=== PATIENT | female | born 1955 | race Caucasian/White ===

== ENCOUNTER 2023-12-30 08:58 | Outpatient (CLI) | payer MEDICARE, SELFPAY ==
[2023-12-30 09:49] LABS: Basophils Absolute Auto 0.1 K/mm3 (0.0-0.1); Basophils Percent Auto 1.1 % (0.2-1.2); Eosinophils Absolute Auto 0.3 K/mm3 (0-0.3); Eosinophils Percent Auto 3.9 % (0-4.4); Hematocrit 45.7 % (37.0-47.0); Hemoglobin 14.4 g/dL (12.0-15.0); Immature Granulocyte Absolute 0.01 K/mm3 (0.00-0.031); Immature Granulocyte Percent A 0.2 % (0-0.5); Lymphocytes Absolute Auto 2.08 K/mm3 (0.9-3.2); Lymphocytes Percent Auto 31.5 % (18.3-44.2); Mean Corpuscular HGB Conc 31.5 g/dl (32-36); Mean Corpuscular Hemoglobin 28.4 pg (26-34); Mean Corpuscular Volume 90.1 fl (80-100); Mean Platelet Volume 9.7 fl (7.4-10.4); Monocytes Absolute Auto 0.7 K/mm3 (0.1-0.6); Monocytes Percent Auto 10.2 % (2.6-8.5); Neutrophils Absolute Auto 3.5 K/mm3 (1.3-6.7); Neutrophils Percent Auto 53.1 % (45.5-73.1); Platelet Count Result 234 k/mm3 (150-375); Red Blood Count 5.07 M/mm3 (4.2-5.4); Red Cell Distribution Width 13.2 % (11.5-14.5); White Blood Count 6.6 K/mm3 (4.5-10.0)
[2023-12-30 09:59] LABS: Alanine Aminotransferase 17 U/L (6-35); Albumin Level 4.5 g/dL (3.5-5.1); Alkaline Phosphatase 54 U/L (38-126); Anion Gap 7 mmol/L (4-12); Aspartate Amino Transferase 24 U/L (14-36); Bilirubin,Total 0.4 mg/dL (0.2-1.3); Blood Urea Nitrogen 11 mg/dL (7-17); Calcium 9.6 mg/dL (8.4-10.2); Carbon Dioxide 24 mmol/L (22-30); Chloride 105 mmol/L (98-107); Cholesterol 156 mg/dL (0-200); Estimated Glomerular Filt Rate 55; Glucose 99 mg/dL (65-110); HDL Direct 84 mg/dL; Potassium 4.4 mmol/L (3.4-5.0); Sodium 136 mmol/L (137-145); Triglycerides 108 mg/dL (<150); Uric Acid 5.2 mg/dL (2.5-7.5)
[2023-12-30 11:39] LABS: Erythrocyte Sedimentation Rate 12 mm/hr (0-20)
[2023-12-30 21:10] LABS: LDL Cholesterol Direct 69 mg/dL
== END 2023-12-30 08:59 | disposition home or self-care (01) ==
PROVIDERS: PCP Family Medicine; Visit Provider Family Medicine
DX: C18.9 Malignant neoplasm of colon, unspecified (principal); I10 Essential (primary) hypertension; E78.2 Mixed hyperlipidemia; I73.9 Peripheral vascular disease, unspecified; M19.90 Unspecified osteoarthritis, unspecified site
CPT/HCPCS: 36415; 80053; 80061; 84443; 84550; 85025; 85652

== ENCOUNTER 2024-02-28 14:31 | Outpatient (CLI) | payer MEDICARE, SELFPAY ==
[2024-02-28 14:44] LABS: Basophils Absolute Auto 0.1 K/mm3 (0.0-0.1); Basophils Percent Auto 0.8 % (0.2-1.2); Eosinophils Absolute Auto 0.3 K/mm3 (0-0.3); Eosinophils Percent Auto 3.7 % (0-4.4); Hematocrit 44.8 % (37.0-47.0); Hemoglobin 14.3 g/dL (12.0-15.0); Immature Granulocyte Absolute 0.02 K/mm3 (0.00-0.031); Immature Granulocyte Percent A 0.2 % (0-0.5); Lymphocytes Absolute Auto 2.42 K/mm3 (0.9-3.2); Lymphocytes Percent Auto 28.3 % (18.3-44.2); Mean Corpuscular HGB Conc 31.9 g/dl (32-36); Mean Corpuscular Hemoglobin 28.8 pg (26-34); Mean Corpuscular Volume 90.3 fl (80-100); Mean Platelet Volume 9.7 fl (7.4-10.4); Monocytes Absolute Auto 0.6 K/mm3 (0.1-0.6); Monocytes Percent Auto 6.8 % (2.6-8.5); Neutrophils Absolute Auto 5.2 K/mm3 (1.3-6.7); Neutrophils Percent Auto 60.2 % (45.5-73.1); Platelet Count Result 231 k/mm3 (150-375); Red Blood Count 4.96 M/mm3 (4.2-5.4); Red Cell Distribution Width 12.7 % (11.5-14.5); White Blood Count 8.6 K/mm3 (4.5-10.0)
[2024-02-28 16:51] LABS: Alanine Aminotransferase 18 U/L (6-35); Albumin Level 4.6 g/dL (3.5-5.1); Alkaline Phosphatase 64 U/L (38-126); Anion Gap 4 mmol/L (4-12); Aspartate Amino Transferase 30 U/L (14-36); Bilirubin,Total 0.6 mg/dL (0.2-1.3); Blood Urea Nitrogen 12 mg/dL (7-17); Carbon Dioxide 29 mmol/L (22-30); Chloride 105 mmol/L (98-107); Estimated Glomerular Filt Rate > 60; Glucose 100 mg/dL (65-110); Potassium 4.2 mmol/L (3.4-5.0); Sodium 138 mmol/L (137-145)
[2024-02-28 17:17] LABS: Carcinoembryonic Antigen 1.2 ng/mL (0.0-3.0)
== END 2024-02-28 14:32 | disposition home or self-care (01) ==
PROVIDERS: PCP Family Medicine; Visit Provider Internal Medicine Hematology & Oncology
DX: C18.6 Malignant neoplasm of descending colon (principal)
CPT/HCPCS: 36415; 80053; 82378; 85025

== ENCOUNTER 2024-03-06 09:01 | Outpatient (CLI) | payer MEDICARE, SELFPAY ==
--- NOTE | ~2024-03-06 | CT_ITS ---
CT of the Abdomen and Pelvis: Indication: Colon cancer Technique: 2.5 mm axial scans were obtained through the abdomen and pelvis following intravenous adm inistration of 100 cc of Omnipaque 350. Dose reduction technique was used on this scan by utilizing a utomated exposure control and iterative reconstruction technique. The dose-length product (DLP) was 3 57.01 mGy-cm. Findings: Scans through the lung bases are unremarkable. 7 mm probable hepatic cyst present. The spleen, pancreas, gallbladder, adrenals and kidneys are withi n normal limits. There are atherosclerotic calcifications of the aorta. No retroperitoneal lymphaden opathy. No bowel obstruction or bowel wall thickening. Evidence of prior partial right colectomy. There is a 1.4 x 1.0 cm peritoneal nodule or lymph node anteriorly in the upper abdomen (axial image 56), adjace nt to the stomach. Images through the pelvis were performed. Urinary bladder unremarkable. No pelvic mass seen. No ascit es. Impression: 1.4 x 1.0 cm peritoneal nodule or lymph node in the upper abdomen adjacent to the stomach. Metastatic disease is a consideration. Comparison with prior exams from other institutions is recommended to as sess for chronicity of this finding. Status post prior partial right colectomy. Reviewed, dictated and finalized at location M. Impression: 1.4 x 1.0 cm peritoneal nodule or lymph node in the upper abdomen adjacent to t he stomach. Metastatic disease is a consideration. Comparison with prior exams from other institutions is recommended to assess for chronicity of this finding . Status post prior partial right colectomy.
== END 2024-03-06 09:02 | disposition home or self-care (01) ==
PROVIDERS: PCP Family Medicine; Visit Provider Internal Medicine Hematology & Oncology
DX: C18.6 Malignant neoplasm of descending colon (principal)
CPT/HCPCS: 74177; Q9967

== ENCOUNTER 2024-03-21 09:09 | Outpatient (CLI) | payer MEDICARE, SELFPAY ==
--- NOTE | ~2024-03-21 | PE_ITS ---
EXAMINATION: PET skull to mid thigh DATE: 03/21/2024 11:59 INDICATION: Colon cancer TECHNIQUE: Blood glucose level was 108 mg/dL. 9.603 mCi of 18-fluorodeoxyglucose (18-FDG) was adminis tered i.v. Low dose computed tomography (CT) images were acquired from the base of the brain to the p roximal thighs for attenuation correction and anatomic localization. Positron emission tomography (PE T) images were acquired in the same distribution beginning 54 minutes after injection. Images includi ng fused PET/CT images were reconstructed in axial, coronal, and sagittal planes. Automated exposure control technique was employed. The dose-length product was 889.22mGy-cm. COMPARISON: None FINDINGS: Head/neck: There is symmetric increased activity in the oral cavity, palatine tonsils, parotid glands, submandi bular glands, laryngeal muscles and ocular muscles without CT correlate, likely physiologic. No patho logically enlarged cervical lymphadenopathy or suspicious foci of increased FDG uptake in the visuali zed head or neck. Chest: Mild emphysema. Mild dependent atelectasis in the bilateral lower lobes. No suspicious pulmonary nodu les, pneumonia, pulmonary edema or pleural effusion. Heart size is normal. Atherosclerotic coronary a rtery calcifications. Thoracic aorta is normal in caliber. No pathologically enlarged or FDG avid tho racic lymphadenopathy. Abdomen/pelvis/proximal thighs: Physiologic renal accumulation and excretion of FDG activity in the kidneys, bladder and along portio ns of ureters. Normal degree and heterogenous pattern of increased uptake throughout the liver withou t radiologic correlate or dominant FDG avid lesion. Small calcified hepatic nodule consistent with ol d granulomatous disease. Subcentimeter cyst in the caudal right hepatic lobe. Gallbladder, spleen, pa ncreas and bilateral adrenal glands are normal. Mild uptake scattered throughout the bowels without r adiologic correlate, also likely physiologic. Status post right hemicolectomy with ileocolic anastomo sis in the left abdomen. Anteverted uterus is unremarkable. No free intraperitoneal gas or fluid. No other abnormal foci of increased FDG uptake or pathologically enlarged lymphadenopathy in the abdome n, pelvis or proximal thighs. Musculoskeletal: Mild uptake at the radial aspect of the bilateral carpi, left . Right which is likely degenerative in etiology. There is mild likely physiologic uptake in the muscles of the bilateral forearms. Mild upt jelena without radiologic correlate overlying the bilateral greater trochanters consistent with trochant laron bursitis. No suspicious lytic, blastic or FDG avid bone lesions to suggest metastatic disease. IMPRESSION: 1. Status post right hemicolectomy for reported colon cancer. No evident metastatic disease. Reviewed, dictated and finalized at location B. IMPRESSION: 1. Status post right hemicolectomy for reported colon cancer. No evident metast atic disease.
[2024-03-21 09:48] LABS: Glucose Point of Care 108 mg/dl (65-105)
== END 2024-03-21 09:10 | disposition home or self-care (01) ==
LOC: ANHIMG 09:11
PROVIDERS: PCP Family Medicine; Visit Provider Internal Medicine Hematology & Oncology
DX: C18.6 Malignant neoplasm of descending colon (principal); Z90.49 Acquired absence of other specified parts of digestive tract
CPT/HCPCS: 78815; A9552

== ENCOUNTER 2024-03-23 09:29 | Outpatient (CLI) | payer MEDICARE, SELFPAY ==
[2024-03-23 11:02] LABS: Influenza A QL RT-PCR Negative (Negative); Influenza B QL RT-PCR Negative (Negative); RSV RNA, RT-PCR Negative (Negative); SARS-CoV-2 RNA PCR Positive (Negative)
== END 2024-03-23 09:30 | disposition home or self-care (01) ==
LOC: ANHLAB 09:30
PROVIDERS: Student in an Organized Health Care Education/Training Program; PCP Family Medicine; Visit Provider Family Medicine
DX: U07.1 COVID-19 (principal); R05.9 Cough, unspecified; R50.9 Fever, unspecified; R09.81 Nasal congestion
CPT/HCPCS: 87637

== ENCOUNTER 2024-07-06 08:35 | Outpatient (CLI) | payer MEDICARE, SELFPAY ==
--- NOTE | ~2024-07-06 | CT_ITS ---
CT of the Abdomen and Pelvis: Indication: Colon cancer Technique: 2.5 mm axial scans were obtained through the abdomen and pelvis following intravenous adm inistration of 100 cc of Omnipaque 350. Dose reduction technique was used on this scan by utilizing a utomated exposure control and iterative reconstruction technique. The dose-length product (DLP) was 4 29.02 mGy-cm. COMPARISON: 03/06/2024 Findings: Scans through the lung bases are unremarkable. The liver, spleen, pancreas, gallbladder, adrenals and kidneys are within normal limits. There are at herosclerotic calcifications of the aorta. No lymphadenopathy. No bowel obstruction or bowel wall thickening. Prior right hemicolectomy. Stable small soft tissue no dule anteriorly, just inferior to the stomach (axial image 58). Images through the pelvis were performed. Urinary bladder unremarkable. No pelvic mass seen. No ascit es. Impression: Stable small soft tissue nodule just inferior to the stomach. Status post right hemicolectomy. Reviewed, dictated and finalized at location . Impression: Stable small soft tissue nodule just inferior to the stomach. Status post right hemicolectomy.
[2024-07-06 09:05] LABS: Estimated Glomerular Filt Rate > 60
== END 2024-07-06 08:36 | disposition home or self-care (01) ==
PROVIDERS: PCP Family Medicine; Visit Provider Internal Medicine Hematology & Oncology
DX: D21.4 Benign neoplasm of connective and other soft tissue of abdomen (principal); Z48.815 Encounter for surgical aftercare following surgery on the digestive system; C18.6 Malignant neoplasm of descending colon
CPT/HCPCS: 74177; Q9967

== ENCOUNTER 2024-07-12 12:24 | Outpatient (CLI) | payer MEDICARE, SELFPAY ==
[2024-07-12 12:40] LABS: Basophils Absolute Auto 0.1 K/mm3 (0.0-0.1); Basophils Percent Auto 0.8 % (0.2-1.2); Eosinophils Absolute Auto 0.3 K/mm3 (0-0.3); Eosinophils Percent Auto 4.6 % (0-4.4); Hematocrit 45.3 % (37.0-47.0); Hemoglobin 14.4 g/dL (12.0-15.0); Immature Granulocyte Absolute 0.02 K/mm3 (0.00-0.031); Immature Granulocyte Percent A 0.3 % (0-0.5); Lymphocytes Absolute Auto 2.38 K/mm3 (0.9-3.2); Lymphocytes Percent Auto 32.9 % (18.3-44.2); Mean Corpuscular HGB Conc 31.8 g/dl (32-36); Mean Corpuscular Hemoglobin 28.8 pg (26-34); Mean Corpuscular Volume 90.6 fl (80-100); Mean Platelet Volume 9.7 fl (7.4-10.4); Monocytes Absolute Auto 0.4 K/mm3 (0.1-0.6); Monocytes Percent Auto 5.9 % (2.6-8.5); Neutrophils Percent Auto 55.5 % (45.5-73.1); Platelet Count Result 244 k/mm3 (150-375); Red Cell Distribution Width 13.1 % (11.5-14.5); White Blood Count 7.2 K/mm3 (4.5-10.0)
[2024-07-12 17:08] LABS: Alanine Aminotransferase 19 U/L (6-35); Albumin Level 4.5 g/dL (3.5-5.1); Alkaline Phosphatase 57 U/L (38-126); Anion Gap 7 mmol/L (4-12); Aspartate Amino Transferase 30 U/L (14-36); Bilirubin,Total 0.5 mg/dL (0.2-1.3); Blood Urea Nitrogen 10 mg/dL (7-17); Calcium 9.5 mg/dL (8.4-10.2); Carbon Dioxide 29 mmol/L (22-30); Chloride 102 mmol/L (98-107); Estimated Glomerular Filt Rate > 60; Glucose 132 mg/dL (65-110); Potassium 4.1 mmol/L (3.4-5.0); Sodium 138 mmol/L (137-145)
[2024-07-12 17:40] LABS: Carcinoembryonic Antigen 1.7 ng/mL (0.0-3.0)
== END 2024-07-12 12:25 | disposition home or self-care (01) ==
LOC: ANHLAB 12:25
PROVIDERS: PCP Family Medicine; Visit Provider Internal Medicine Hematology & Oncology
DX: C18.6 Malignant neoplasm of descending colon (principal)
CPT/HCPCS: 36415; 80053; 82378; 85025

== ENCOUNTER 2024-09-14 08:02 | Outpatient (CLI) | payer MEDICARE, SELFPAY ==
--- NOTE | ~2024-09-14 | US_ITS ---
US renal BI 09/14/2024 08:58 Procedure: Realtime transabdominal ultrasound of the kidneys and bladder. Indication: Abnormal finding on outside CT. Comparison: CT dated 09/14/2024 Findings: Renal echotexture is normal bilaterally without hydronephrosis, contour deforming mass or r enal calculus. The right kidney measures 10.1 cm and left kidney measures 10.4 cm. Bladder within no rmal limits. Impression: 1: Unremarkable renal ultrasound. No stones, masses or hydronephrosis. 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 No stones, masses or hydronephrosis.
== END 2024-09-14 08:03 | disposition home or self-care (01) ==
PROVIDERS: PCP Family Medicine; Visit Provider Student in an Organized Health Care Education/Training Program
DX: R93.429 Abnormal radiologic findings on diagnostic imaging of unspecified kidney (principal)
CPT/HCPCS: 76775

== ENCOUNTER 2025-01-03 07:57 | Outpatient (CLI) | payer MEDICARE, SELFPAY ==
--- NOTE | ~2025-01-03 | CT_ITS ---
CT of the Abdomen and Pelvis: Indication: Colon cancer Technique: 2.5 mm axial scans were obtained through the abdomen and pelvis following intravenous adm inistration of 100 cc of Omnipaque 350. Dose reduction technique was used on this scan by utilizing a utomated exposure control and iterative reconstruction technique. The dose-length product (DLP) was 3 82.64 mGy-cm. COMPARISON: 07/06/2024 Findings: Scans through the lung bases are unremarkable. The liver, spleen, pancreas, gallbladder, adrenals and kidneys are within normal limits. There are ex tensive atherosclerotic calcifications of the aorta and iliac vessels. No lymphadenopathy. No bowel obstruction or bowel wall thickening. Prior partial right colectomy. Probable small soft tis simone nodule or implant just anterior to the stomach, measuring 1.9 cm in diameter. Images through the pelvis were performed. Urinary bladder unremarkable. No pelvic mass evident. No as cites. Impression: Stable small soft tissue nodule or implant just anterior to the stomach, measuring 1.9 cm in diameter . Extensive atherosclerotic disease, as above. Prior partial right colectomy. Reviewed, dictated and finalized at [facility]. Impression: Stable small soft tissue nodule or implant just anterior to the stomach, measur ing 1.9 cm in diameter. Extensive atherosclerotic disease, as above. Prior partial right colectomy.
--- OUTSIDE RECORDS SUMMARY | 2025-01-03 08:06 | XMS_ITS | Patient Health Record ---
Author Organization [facility] Address [address] [address] Care Team Providers Care Communications Department Head Name Role Phone Nimesh Dunham Primary Care Provider Ameirca Barriga Unavailable Reason For Referral No Information Social History Tobacco Use: Social History Observation Description Date Details (start date - stop date) Current Smoker NA - NA ... Question Answer Notes Are you a current smoker How often do you smoke cigarettes? every day Alcohol Screen Question Answer Notes Did you have a drink containing alcohol in the p ast year? 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) Active confirmed Problem Secondary malignant neoplasm of intra-abdominal lymph nodes (35187228) 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 (70829646) 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 Problem 15131016 Left sided sciatica (M54.32) Active confirmed Problem Hyperlipidemia (84008017) Other hyperlipidemia (E78.49) Active confirmed Problem Malignant tumor of transverse colon (168986330) Cancer of transverse colon (C18.4) Active confirmed Plan Of Treatment Pending Test Test Name Order Date X-RAY EXAM KNEE 1 OR 2 VIEWS (47761) 08/2018 X-RAY EXAM KNEE STANDING VIEW (59418) Insurance Providers Payer Name Payer Address Payer Phone Subscriber Number Group Number Insured Name Patient Relationship to Insured Coverage Start Date Coverage End Date MEDICARE [employer] [address] [place] [phone] [id number] Elisha Boyle Self - patient is the insured Medical (General) History Surgical History Surgery Date(Month/Year) HERNIA HAND
--- OUTSIDE RECORDS SUMMARY | 2025-01-03 08:06 | XMS_ITS | Clinical Summary ---
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 Active rosuvastatin (CRESTOR) 20 mg tablet Take 20 mg by mouth daily. Active carvediloL (COREG) 6.25 mg tablet Take 6.25 mg by mouth 2 times daily with meals. Active ezetimibe (ZETIA) 10 mg tablet Take 10 mg by mouth daily. Active aspirin (ECOTRIN EC) 81 mg Tablet, Delayed Release (E.C.) Take 81 mg by mouth daily. Active Active Problems No known active problems Encounters Date Type Department Care Team Description 12/13/2024 External Device Data [facility] ABSTRACTION Provider, Abstract 12/02/2024 External Device Data [facility] ABSTRACTION Provider, Abstract 12/01/2024 External Device Data [facility]STRACTION Provider, Abstract 11/29/2024 External Device Data [facility]STRACTION Provider, Abstract 11/29/2024 External Device Data [facility]STRACTION Provider, Abstract 11/15/2024 External Device Data [facility]STRACTION Provider, Abstract 10/18/2024 External Device Data [facility]STRACTION Provider, Abstract 10/18/2024 External Device Data [facility] ABSTRACTION Provider, Abstract from Last 3 Months Family History Relation Name Status Comments Brother Alive Daughter Alive Father Mother Sister Alive Son Alive Social History Tobacco Use Types Packs/Day Years Used Date Smoking Tobacco: Some Days Cigarettes 0.2 55.3 Started: 1970 Smokeless Tobacco: Never Tobacco Cessation:Ready to Q uit: Not Asked; Counseling Given: Not Answered Alcohol Use Standard Drinks/Week Comments Yes 0 (1 standard drink = 0.6 oz pur e alcohol) rarely Comments Unknown Sex and Gender Information Value Date Recorded Sex Assigned at Not on file Legal Sex Female 11:19 AM CDT Gender Identity Not on file Sexual Orientation Not on file Last Filed Vital Signs Vital Sign Reading Time Taken Comments Blood Pressure 140/78 07/13/2024 12:59 PM CDT Pulse 85 07/13/2024 12:59 PM CDT Temperature 36.3 C (97.3 F) 07/13/2024 12:59 PM CDT Respiratory Rate 16 07/13/2024 12:59 PM CDT Oxygen Saturation 97% 07/13/2024 12:59 PM CDT Inhaled Oxygen Concentration - - Weight 66.2 kg (146 lb) 07/13/2024 12:59 PM CDT Height 160 cm (5' 3 ) 02/28/2024 1:40 PM CDT Body Mass Index 25.86 02/28/2024 1:40 PM CDT Plan of Treatment Upcoming Encounters Date Type Department Care Team (Late st Contact Info) Description 01/10/2025 2:30 PM CDT Office Visit [facility] [place] [address] [place] [address] [facility] [address] [place] [address] Harpreet Granados MD [address] [facility] [address] [place] [address] Health Maintenance Due Date Last Done Comments Pre-Diabetes and Diabetes Screening 1955 DTAP/TDAP/TD VACCINES (1 - Tdap) 1974 PNEUMOCOCCAL VACCINE 50+ YEARS (1 of 2 - PCV) 10/19/18 75 BREAST CANCER SCREENING 1995 ZOSTER VACCINE (1 of 2) 2005 OSTEOPOROSIS SCREENING 2020 INFLUENZA VACCINE (#1) 2024 RSV VACCINE (60+ or ) (1 - 1-dose 75+ series) 2030 Insurance MEDICARE PART A AND B Care Teams 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
--- OUTSIDE RECORDS SUMMARY | 2025-01-03 08:06 | XMS_ITS | Referral Summary ---
Author Organization [facility] [address] Address [address] [place] [address] Care Team Providers Care Drum Stock Clerk Name Role Phone Stephanie Grier MD Primary Care Provider Rusty Terrell MD Unavailable [phone] Devyn Weston MD Unavailable Encounters Date Type Department Care Team Description 11/28/2024 7:52 AM SENIOR HRIS ANALYST - 11/28/2024 11:59 PM SENIOR HRIS ANALYST Hospital Encounter [facility] Diag Imaging [facility] [place] [address] Closed wedge compression fracture of T4 vertebra with routine healing, subsequent encounter; Closed wedge compression fracture of T5 vertebra with routine healing, subsequent encounter Discharge Disposition: Discharge to home or self care 11/28/2024 8:24 AM SENIOR HRIS ANALYST - 11/28/2024 11:59 PM SENIOR HRIS ANALYST Hospital Encounter [facility] Pain Mgmt [facility] [address] [address] Devyn Weston MD Closed wedge compression fracture of T4 vertebra with routine healing, subsequent encounter (Primary Dx); Closed wedge compression fracture of T5 vertebra with routine healing, subsequent encounter; Age-related osteoporosis with current pathological fracture with routine healing, subsequent encounter Discharge Disposition: Discharge to home or self care 10/25/2024 Orders Only [facility] V[facility] at [address] [place] [address] Manolo Neves MD Bilateral carotid artery stenosis (Primary Dx) 10/25/2024 9:45 AM SENIOR HRIS ANALYST Office Visit [facility] V[facility] at [address] [place] [address] Willa Burger NP Essential hypertension (Primary Dx); Hyperlipidemia LDL goal <70; Bilateral carotid artery stenosis 10/16/2024 11:00 AM SENIOR HRIS ANALYST Ancillary Procedure [facility] Surgery at [address] [place] [address] Bilateral carotid artery stenosis from Last 3 Months Allergies No known active allergies Medications losartan (COZAAR) 25 mg tablet Take 1 tablet (25 mg total) by mouth daily 02/14/2024 Active rosuvastatin (CRESTOR) 20 mg tablet Take 1 tablet (20 mg total) by mouth daily 02/14/2024 Active ezetimibe (ZETIA) 10 mg tablet Take 1 tablet (10 mg total) by mouth daily 02/14/2024 Active aspirin 81 mg enteric coated tablet Take 1 tablet (81 mg total) by mouth daily Active carvediloL (COREG) 6.25 mg tabletIndications :Benign hypertensive heart disease without heart failure,Essential hypertension Take 1 tablet (6.25 mg total) by mouth 2 (two) times a day with meals 180 tablet 3 02/24/2024 02/24/20 25 Active HYDROcodone-aceta minophen (NORCO) 5-325 mg per tabletIndications :Pain Take 1 tablet by mouth every 6 (six) hours as needed for pain 15 tablet 08/28/2024 Active ibuprofen (ADVIL,MOTRIN) 400 mg tablet Take 1 tablet (400 mg total) by mouth every 6 (six) hours as needed for pain Active Active Problems Problem Noted Date Diagnosed Date Essential hypertension 02/24/2024 Assessment & Plan (04/19/2024 11:27 AM CDT): Stable continue Coreg 6.25 mg Hyperlipidemia LDL goal <70 02/24/2024 Assessment & Plan (04/19/2024 11:27 AM CDT): Stable continue Crestor 20 mg PSVT (paroxysmal supraventricular tachycardia) 0 02/24/2024 History of CVA (cerebrovascular accident) 2023 Bilateral carotid artery stenosis 02/24/2024 Assessment & Plan (10/26/2024 10:54 AM SENIOR HRIS ANALYST): Asymptomatic moderate right internal carotid artery stenosis. Patent left internal carotid artery. Unfortunately continues to smoke. She had previously bilateral carotid endarterectomy in [place] 2-1/2 years ago. Recommend risk factor modifications, aspirin, Zetia and follow up in 6 months for routine surveillance with carotid duplex. Assessment & Plan (04/19/2024 11:27 AM CDT): Bilateral high-grade ICA stenosis status post staged carotid endarterectomy done in [place] back in 2021, has had elevated velocities on repeat duplex of the right ICA, I suspect a mixture of hyperplasia as well as possible continued progression of her disease as she continues to smoke. At this point can safely undergo continued surveillance with repeat carotid duplex in 6 months. Continue ASA statin therapy good blood pressure control. I strongly encouraged her to quit smoking History of bilateral carotid endarterectomy 01/27 Other specified symptoms and signs involving the circulatory and respiratory systems 02/24/2024 Benign hypertensive heart disease without heart failure 02/24/2024 Social History Tobacco Use Types Packs/Day Years Used Date Smoking Tobacco: Every Day Cigarettes Passive Smoke Exposure: Past Tobacco Cessation:Ready to Q uit: Not Asked; Counseling Given: Not Answered AUDIT-C Answer Date Recorded Frequency of Alcohol Consumption Not on file 09/28/2024 Q2: How many drinks containi ng alcohol do you have on a typical day when you are drinking? Patient does not drink Frequency of Binge Drinking Not on file 10/2024 Personal Safety Answer Date Recorded Have you ever been in or are you currently in a harmful physical or emotional relationship or is someone making you feel afraid or unsafe? Denies 08/28/2024 Comments No Sex and Gender Information Value Date Recorded Sex Assigned at Not on file Legal Sex Female 9:24 AM CDT Gender Identity Not on file Sexual Orientation Not on file Last Filed Vital Signs Vital Sign Reading Time Taken Comments Blood Pressure 114/68 11/28/2024 8:46 AM SENIOR HRIS ANALYST Pulse 85 11/28/2024 8:46 AM SENIOR HRIS ANALYST Temperature 36.8 C (98.2 F) 11/28/2024 8:46 AM SENIOR HRIS ANALYST Respiratory Rate 18 11/28/2024 8:46 AM SENIOR HRIS ANALYST Oxygen Saturation 96% 11/28/2024 8:46 AM SENIOR HRIS ANALYST Inhaled Oxygen Concentration - - Weight 70.4 kg (155 lb 1.6 oz) 11/28/2024 8:46 A M SENIOR HRIS ANALYST Height 160 cm (5' 3 ) 11/28/2024 8:46 AM SENIOR HRIS ANALYST Body Mass Index 27.47 11/28/2024 8:46 AM SENIOR HRIS ANALYST Plan of Treatment Not on file Procedures Procedure Name Priority Date/Time Associated Diagnosis Comments XR SPINE THORACIC 3 VIEWS Schedule Routine, Read Routine (OP Routine) 11/28/2024 8:06 AM SENIOR HRIS ANALYST Closed wedge compression fracture of T4 vertebra with routine healing, subsequent encounter Closed wedge compression fracture of T5 vertebra with routine healing, subsequent encounter US CAROTIDS DUPLEX BILATERAL Schedule Routine, Read Routine (OP Routine) 10/16/2024 11:33 AM SENIOR HRIS ANALYST Bilateral carotid artery stenosis from Last 3 Months Results * X-ray thoracic spine 3 views (11/28/2024 8:06 AM SENIOR HRIS ANALYST) Anatomical Region Laterality Modality Spine N/A Computed Radiogr aphy 11/30/2024 2:02 PM SENIOR HRIS ANALYST Narrative 11/30/2024 2:05 PM SENIOR HRIS ANALYST EXAM DESCRIPTION: XR SPINE THORACIC 3 VIEWS REASON FOR STUDY: Other (type), t 4 and t5 compression fracture, osteoporosis Fell/fx T4-T5 08/28/24 TECHNIQUE: Frontal, lateral and swimmer's radiographic view(s) of the thorax spine. COMPARISON: Thoracic spine radiographs dated 09/28/2024, 08/30/2024. Thoracic spine CT dated 08/28/2024. Thoracic spine MRI dated 08/30/2024. FINDINGS: The mid to upper thoracic levels are obscured by overlapping shoulders on the lateral view. The osseous structures are diffusely demineralized and limits evaluation for subtle nondisplaced fractures. There is mild dextroconvex curvature. The T5 vertebral body compression fracture is again seen. The known additional fractures including at T3 and T4 are better seen on the previous MRI. Remainder of the thoracic vertebral body heights are grossly maintained. Multilevel endplate degenerative changes and marginal spur formation. IMPRESSION: 1. The T5 vertebral body compression fracture as seen on the previous thoracic spine radiographs dated 09/28/2024. 2. The additional known fractures are better seen on the previous thoracic spine MRI dated 08/30/2024. 3. The degenerative changes are similar. THIS IS AN ELECTRONICALLY VERIFIED FINAL REPORT 11/30/2024 2:05 PM - Electronically signed by Kayode Dodge D.O. AP T: Report ID: [id number] Reading Location: [place] [address] Procedure Note Kayode Dodge, DO - 11/30/2024 EXAM DESCRIPTION: XR SPINE THORACIC 3 VIEWS REASON FOR STUDY: Other (type), t 4 and t5 compression fracture,osteoporosis Fell/fx T4-T5 08/28/24 TECHNIQUE: Frontal, lateral and swimmer's radiographic view(s) of thethorax spine. COMPARISON: Thoracic spine radiographs dated 09/28/2024, 08/30/2024.Thoracic spine CT dated 08/28/2024. Thoracic spine MRI dated 08/30/2024. FINDINGS: The mid to upper thoracic levels are obscured by overlapping shoulders on the lateral view. The osseous structures are diffusely demineralized and limits evaluation for subtle nondisplaced fractures.There is mild dextroconvex curvature. The T5 vertebral body compressionfracture is again seen. The known additional fractures including at T3 and T4 arebetter seen on the previous MRI. Remainder of the thoracic vertebral bodyheights are grossly maintained. Multilevel endplate degenerative changes andmarginal spur formation. IMPRESSION: 1. The T5 vertebral body compression fracture as seen on the previous thoracic spine radiographs dated 09/28/2024. 2. The additional known fractures are better seen on the previousthoracic spine MRI dated 08/30/2024. 3. The degenerative changes are similar. THIS IS AN ELECTRONICALLY VERIFIED FINAL REPORT 11/30/2024 2:05 PM - Electronically signed by Kayode Dodge D.O. AP T: Report ID: [id number] Reading Location: [id number] Devyn Weston MD IMG XR PROCEDURES Final Result * US Carotids Duplex Bilateral (10/16/2024 11:33 AM SENIOR HRIS ANALYST) LV EF % CONS SCIMAGE Anatomical Region Laterality Modality Vascular Bilateral Ultrasound 10/16/2024 11:0 4 AM SENIOR HRIS ANALYST Narrative 10/18/2024 8:36 AM SENIOR HRIS ANALYST Vascular & Vein Surgery [address] [place] [address] Carotid Duplex Ultrasound Report Patient Name: DEE BOYLE E : 1955 (68y 11m) Study Date: 10/16/2024 11:04:42 AM Gender: F Compliance Analyst: Location: [facility] Ref Provider: MANOLO NEVES Quality: Adequate Order Provider: MANOLO NEVES PROCEDURES: Carotid Report: Carotid duplex examination of the extracranial arteries was performed using 2D, color and spectral Doppler. INDICATIONS: S/P bilateral CEA 2021 (outside facility). HISTORY: Hypertension. Hyperlipidemia. Stroke. Colon CA. Current smoker. COMPARISONS: No change compared to prior study. The previous exam was completed on 03/13/24. MEASUREMENTS: Right Value Left Value RT Prox CCA PSV 130 cm/sec LT Prox CCA PSV 100 cm/sec RT Prox CCA EDV 17 cm/sec LT Prox CCA EDV 21 cm/sec RT Distal CCA PSV 79 cm/sec LT Distal CCA PSV 109 cm/sec RT Distal CCA EDV 22 cm/sec LT Distal CCA EDV 24 cm/sec Rt Bulb PSV 212 cm/sec LT Prox ICA PSV 93 cm/sec Rt Bulb EDV 51 cm/sec LT Prox ICA EDV 16 cm/sec RT Prox ICA PSV 194 cm/sec LT Mid ICA PSV 94 cm/sec RT Prox ICA EDV 39 cm/sec LT Mid ICA EDV 28 cm/sec RT Mid ICA PSV 105 cm/sec LT Distal ICA PSV 85 cm/sec RT Mid ICA EDV 25 cm/sec LT Distal ICA EDV 30 cm/sec RT Distal ICA PSV 66 cm/sec LT ECA Prx PSV 122 cm/sec RT Distal ICA EDV 25 cm/sec LT ICA/CCA 0.85 ratio RT ECA Prx PSV 185 cm/sec Lt Vert Dst PSV 64 cm/sec RT ICA/CCA 2.46 ratio Rt Vert Dst PSV 58 cm/sec - FINDINGS: Rt Common Carotid Artery: The plaque in the right CCA appears to be heterogeneous. Rt Internal Carotid Artery: The plaque in the right internal carotid artery appears to be heterogeneous and smooth. Significant atherosclerotic changes of the right internal carotid artery with elevated peak systolic velocity and end diastolic velocity, as above. 50-69% stenosis. Widely patent internal carotid artery with elevated PSV, plaque with narrowing noted at proximal endarterectomy patch with elevated PSV 212/51 cm/s. Rt External Carotid Artery: Patent right external carotid artery with evidence of atherosclerotic disease present. Rt Vertebral Artery: The right vertebral artery is patent with antegrade flow. Lt Common Carotid Artery: The plaque in the left CCA appears to be heterogeneous. Lt Internal Carotid Artery: The plaque in the left internal carotid artery appears to be heterogeneous and smooth. Atherosclerotic changes of the left internal carotid artery without hemodynamically significant Doppler findings. <50% stenosis. Lt External Carotid Artery: Patent left external carotid artery with evidence of atherosclerotic disease present. Lt Vertebral Artery: The left vertebral artery is patent with antegrade flow. Comments: Brachial artery systolic blood pressure is 153 on the right, 152 on the left. CONCLUSIONS: 1. The right internal carotid artery disease is consistent with a 50-69% stenosis. 2. The left internal carotid artery disease is consistent with a less than 50% stenosis. ATTESTATION: I have reviewed and interpreted the pertinent images and measurements of this study. I attest to the conclusions in the final report that is provided above. Electronically Signed By: Manolo Neves MD [facility] 10/18/2024 8:35:27 AM SENIOR HRIS ANALYST Procedure Note Manolo Neves MD - 10/18/2024 Vascular & Vein Surgery [address] [place] [address] Carotid Duplex Ultrasound Report Patient Name: DEE BOYLE E : 1955 (68y 11m) Study Date: 10/16/2024 11:04:42 AM Gender: F Compliance Analyst: Location: [facility] Provider: MANOLO NEVES Quality: Adequate Order Provider: MANOLO NEVES PROCEDURES: Carotid Report: Carotid duplex examination of the extracranial arterieswas performed using 2D, color and spectral Doppler. INDICATIONS: S/P bilateral CEA 2021 (outside facility). HISTORY: Hypertension. Hyperlipidemia. Stroke. Colon CA. Current smoker. COMPARISONS: No change compared to prior study. The previous exam was completed on03/13/24. MEASUREMENTS: Right Value Left Value RT Prox CCA PSV 130 cm/sec LT Prox CCA PSV 100 cm/sec RT Prox CCA EDV 17 cm/sec LT Prox CCA EDV 21 cm/sec RT Distal CCA PSV 79 cm/sec LT Distal CCA PSV 109 cm/sec RT Distal CCA EDV 22 cm/sec LT Distal CCA EDV 24 cm/sec Rt Bulb PSV 212 cm/sec LT Prox ICA PSV 93 cm/sec Rt Bulb EDV 51 cm/sec LT Prox ICA EDV 16 cm/sec RT Prox ICA PSV 194 cm/sec LT Mid ICA PSV 94 cm/sec RT Prox ICA EDV 39 cm/sec LT Mid ICA EDV 28 cm/sec RT Mid ICA PSV 105 cm/sec LT Distal ICA PSV 85 cm/sec RT Mid ICA EDV 25 cm/sec LT Distal ICA EDV 30 cm/sec RT Distal ICA PSV 66 cm/sec LT ECA Prx PSV 122 cm/sec RT Distal ICA EDV 25 cm/sec LT ICA/CCA 0.85 ratio RT ECA Prx PSV 185 cm/sec Lt Vert Dst PSV 64 cm/sec RT ICA/CCA 2.46ratio Rt Vert Dst PSV 58cm/sec - FINDINGS: Rt Common Carotid Artery: The plaque in the right CCA appears to beheterogeneous. Rt Internal Carotid Artery: The plaque in the right internal carotidartery appears to be heterogeneous and smooth. Significant atherosclerotic changes of the rightinternal carotid artery with elevated peak systolic velocity and end diastolicvelocity, as above. 50-69% stenosis. Widely patent internal carotid artery with elevated PSV,plaque with narrowing noted at proximal endarterectomy patch with elevated PSV 212/51cm/s. Rt External Carotid Artery: Patent right external carotid artery withevidence of atherosclerotic disease present. Rt Vertebral Artery: The right vertebral artery is patent with antegradeflow. Lt Common Carotid Artery: The plaque in the left CCA appears to beheterogeneous. Lt Internal Carotid Artery: The plaque in the left internal carotid arteryappears to be heterogeneous and smooth. Atherosclerotic changes of the left internalcarotid artery without hemodynamically significant Doppler findings. <50% stenosis. Lt External Carotid Artery: Patent left external carotid artery withevidence of atherosclerotic disease present. Lt Vertebral Artery: The left vertebral artery is patent with antegradeflow. Comments: Brachial artery systolic blood pressure is 153 on the right, 152on the left. CONCLUSIONS: 1. The right internal carotid artery disease is consistent with a 50- 69%stenosis. 2. The left internal carotid artery disease is consistent with a less than50% stenosis. ATTESTATION: I have reviewed and interpreted the pertinent images and measurements ofthis study. I attest to the conclusions in the final report that is provided above. Electronically Signed By: Manolo Neves MD B 10/18/2024 8:35:27 AM SENIOR HRIS ANALYST Manolo Neves MD [facility] PROCEDURES Final Result from Last 3 Months Insurance MEDICARE Care Teams Drum Stock Clerk Relationship Specialty Start Date End Date Stephanie Grier MD [address] [facility] [address] [facility] [address] [place] [id number] PCP - General Family Medicine 12/07/23 Rusty Terrell MD [facility] [address] [facility], [address] [address] Consulting Physician Neurosurgery 09/06/24 Devyn Weston MD [address] [facility] [address] [facility], [address] [address] Consulting Physician Pain Management 11/28/24
--- OUTSIDE RECORDS SUMMARY | 2025-01-03 08:06 | XMS_ITS | Clinical Summary ---
Author Organization [facility] [address] Address [address] [place] [address] Care Team Providers Care Supervisor Sawmill Name Role Phone Stephanie Grier MD Primary Care Provider Rusty Terrell MD Unavailable [phone] Devyn Weston MD Unavailable Allergies No known active allergies Medications losartan [...] 02/24/2024 Assessment & Plan (10/26/2024 10:54 AM MATERIALS PLANNING ANALYST): Asymptomatic moderate right internal carotid artery stenosis. Patent left internal carotid artery. Unfortunately continues to smoke. She had previously bilateral carotid endarterectomy in [place] 2-1/2 years ago. Recommend risk factor modifications, aspirin, Zetia and follow up in 6 months for routine surveillance with carotid duplex. Assessment & Plan (04/19/2024 11:27 AM CDT): Bilateral high-grade ICA stenosis status post staged carotid endarterectomy done in [place] back in 2021, has had elevated velocities [...] hypertensive heart disease without heart failure 02/24/2024 Encounters Date Type Department Care Team Description 11/28/2024 8:24 AM MATERIALS PLANNING ANALYST - 11/28/2024 11:59 PM MATERIALS PLANNING ANALYST Hospital Encounter [facility] Neuroscience Ctr Pain Mgmt [address] [address] Devyn Weston MD Closed wedge compression fracture of T4 vertebra with routine healing, subsequent encounter (Primary Dx); Closed wedge compression fracture of T5 vertebra with routine healing, subsequent encounter; Age-related osteoporosis with current pathological fracture with routine healing, subsequent encounter Discharge Disposition: Discharge to home or self care 11/28/2024 7:52 AM MATERIALS PLANNING ANALYST - 11/28/2024 11:59 PM MATERIALS PLANNING ANALYST Hospital Encounter [facility] Diag Imaging [address] [place] [address] Closed wedge compression fracture of T4 vertebra with routine healing, subsequent encounter; Closed wedge compression fracture of T5 vertebra with routine healing, subsequent encounter Discharge Disposition: Discharge to home or self care 10/25/2024 9:45 AM MATERIALS PLANNING ANALYST Office Visit [facility] Medical Group Vascular at [address] [place] [address] Willa Burger NP Essential hypertension (Primary Dx); Hyperlipidemia LDL goal <70; Bilateral carotid artery stenosis 10/25/2024 Orders Only [facility] Group Vascular at [address] [place] [address] Manolo Neves MD Bilateral carotid artery stenosis (Primary Dx) 10/16/2024 11:00 AM MATERIALS PLANNING ANALYST Ancillary Procedure [facility] Vascular and Vein Surgery at [address] [place] [address] Bilateral carotid artery stenosis from Last 3 Months Surgical History Surgery Date Site/Laterality Comments HERNIA REPAIR APPENDECTOMY CAROTID ENDARTERECTOMY Bilateral Medical History Medical History Date Comments Hypertension Hyperlipidemia Heart murmur Arrhythmia History of colon cancer Stroke (HCC) Family History Medical History Relation Name Comments No Known Problems Brother 1 Heart disease Brother 2 Cancer Father Heart attack Mother Stroke Mother Heart disease Sister Relation Name Status Comments Brother 1 Alive Brother 2 Alive Father Mother Alive Sister Alive Social History Tobacco Use Types Packs/Day [...] on file Sexual Orientation Not on file Obstetrics History Last Filed Vital Signs Vital Sign Reading Time Taken Comments Blood Pressure 114/68 11/28/2024 8:46 AM MATERIALS PLANNING ANALYST Pulse 85 11/28/2024 8:46 AM MATERIALS PLANNING ANALYST Temperature 36.8 C (98.2 F) 11/28/2024 8:46 AM MATERIALS PLANNING ANALYST Respiratory Rate 18 11/28/2024 8:46 AM MATERIALS PLANNING ANALYST Oxygen Saturation 96% 11/28/2024 8:46 AM MATERIALS PLANNING ANALYST Inhaled Oxygen Concentration - - Weight 70.4 kg (155 lb 1.6 oz) 11/28/2024 8:46 A M MATERIALS PLANNING ANALYST Height 160 cm (5' 3 ) 11/28/2024 8:46 AM MATERIALS PLANNING ANALYST Body Mass Index 27.47 11/28/2024 8:46 AM MATERIALS PLANNING ANALYST Plan of Treatment Health Maintenance Due Date Last Done Comments Breast Cancer Screening-Mammogram 1955 Colon Cancer Screening-Colonoscopy 1955 Depression Screening 1955 Fall Risk Assessment 1955 Hepatitis C Screening 1955 Osteoporosis Screening-Bone Density Scan 1955 DTaP/Tdap/Td Vaccine (1 - Tdap) 1966 Hepatitis B Screening 1973 Pneumococcal vaccine 65+ (1 of 2 - PCV) 1974 Zoster Vaccine (1 of 2) 2005 Well Visit 65+ 2020 Influenza Vaccine (#1) 2024 Procedures Procedure Name Priority Date/Time Associated Diagnosis Comments XR SPINE THORACIC 3 VIEWS Schedule Routine, Read Routine (OP Routine) 11/28/2024 8:06 AM MATERIALS PLANNING ANALYST Closed wedge compression fracture of T4 vertebra with routine healing, subsequent encounter Closed wedge compression fracture of T5 vertebra with routine healing, subsequent encounter US CAROTIDS DUPLEX BILATERAL Schedule Routine, Read Routine (OP Routine) 10/16/2024 11:33 AM MATERIALS PLANNING ANALYST Bilateral carotid artery stenosis from Last 3 Months Results * X-ray thoracic spine 3 views (11/28/2024 8:06 AM MATERIALS PLANNING ANALYST) Anatomical Region Laterality Modality Spine N/A Computed Radiogr aphy 11/30/2024 2:02 PM MATERIALS PLANNING ANALYST Narrative 11/30/2024 2:05 PM MATERIALS PLANNING ANALYST EXAM DESCRIPTION: XR SPINE THORACIC 3 [...] Kayode Dodge D.O. AP T: Report ID: [id number] Reading Location: [id number] Procedure Note Kayode Dodge, DO - 11/30/2024 [...] Kayode Dodge D.O. AP T: Report ID: [id number] Reading Location: [id number] us Devyn Weston MD IMG XR PROCEDURES Final Result * US Carotids Duplex Bilateral (10/16/2024 11:33 AM MATERIALS PLANNING ANALYST) LV EF % CONS SCIMAGE Anatomical Region Laterality Modality Vascular Bilateral Ultrasound 10/16/2024 11:0 4 AM MATERIALS PLANNING ANALYST Narrative 10/18/2024 8:36 AM MATERIALS PLANNING ANALYST Vascular & Vein Surgery [address] [facility] [place] [address] Carotid Duplex Ultrasound Report Patient Name: DEE BOYLE E : 1955 (68y 11m) Study Date: 10/16/2024 11:04:42 AM Gender: F Certified Scrum Master: SUSHIL Location: [facility] Ref Provider: MANOLO NEVES Quality: Adequate Order [...] above. Electronically Signed By: Manolo Neves MD [place] 10/18/2024 8:35:27 AM MATERIALS PLANNING ANALYST Procedure Note Manolo Neves MD - 10/18/2024 Vascular & Vein Surgery [address] [facility] [place] [address] Carotid Duplex Ultrasound Report Patient Name: DEE BOYLE Jose : 1955 (68y 11m) Study Date: 10/16/2024 11:04:42 AM Gender: F Certified Scrum Master: Location: [facility] Ref Provider: MANOLO NEVES Quality: Adequate Order [...] above. Electronically Signed By: Manolo Neves MD [facility] 10/18/2024 8:35:27 AM MATERIALS PLANNING ANALYST Manolo Neves MD [facility] PROCEDURES Final Result from Last 3 Months Insurance MEDICARE Care Teams Supervisor Sawmill Relationship Specialty Start Date End Date Stephanie Grier MD [address] [place], [place] [id number] PCP - General Family Medicine 12/07/23 Rusty Terrell MD [address] [facility] [address] [facility], [facility] [address] [place] [address] Consulting Physician Neurosurgery 09/06/24 Devyn Weston MD [address] [facility] [facility], [facility] [address] [place] [address] Consulting Physician Pain Management 11/28/24
--- OUTSIDE RECORDS SUMMARY | 2025-01-03 08:06 | XMS_ITS | Encounter Summary ---
Author Organization [facility] Healthcare Address [address] [place] [address] Care Team Providers Care Mobile Home Park Manager Name Role Phone Stephanie Grier MD Primary Care Provider Rusty Terrell MD Unavailable [phone] Devyn Weston MD Unavailable Encounter Details Date Type Department Care Team (Late st Contact Info) Description 09/01/2024 Telephone [facility] Orthopedic and Neuroscience Ctr Pain Mgmt [facility] [address] [place] [address] Bernard Dowell RN Social History Tobacco Use Types Packs/Day Years Used Date Smoking Tobacco: Every Day Cigarettes Passive Smoke Exposure: Past Personal Safety Answer Date Recorded Have you ever been in or are you currently in a harmful physical or emotional relationship or is someone making you feel afraid or unsafe? Denies 08/28/2024 Comments Unknown Sex and Gender Information Value Date Recorded Sex Assigned at Not on file Legal Sex Female 9:24 AM CDT Gender Identity Not on file Sexual Orientation Not on file documented as of this encounter Plan of Treatment Not on file documented as of this encounter Visit Diagnoses Not on filedocumented in this encounter Care Teams Mobile Home Park Manager Relationship Specialty Start Date End Date Stephanie Grier MD [address] [facility] [address] [place] [address] PCP - General Family Medicine 12/07/23 Rusty Terrell MD [address] [facility] [address] [facility], [address] [address] Consulting Physician Neurosurgery 09/06/24 Devyn Weston MD [address] [facility], [address] [address] Consulting Physician Pain Management 11/28/24 documented as of this encounter
[2025-01-03 08:44] LABS: Estimated Glomerular Filt Rate 55
== END 2025-01-03 07:58 | disposition home or self-care (01) ==
PROVIDERS: PCP Family Medicine; Visit Provider Internal Medicine Hematology & Oncology
DX: R93.5 Abnormal findings on diagnostic imaging of other abdominal regions, including retroperitoneum (principal); C18.6 Malignant neoplasm of descending colon; Z90.49 Acquired absence of other specified parts of digestive tract
CPT/HCPCS: 74177; Q9967

== ENCOUNTER 2025-01-03 08:56 | Outpatient (CLI) | payer MEDICARE, SELFPAY ==
[2025-01-03 09:09] LABS: Basophils Percent Auto 0.7 % (0.2-1.2); Eosinophils Absolute Auto 0.3 K/mm3 (0-0.3); Eosinophils Percent Auto 4.3 % (0-4.4); Hematocrit 42.2 % (37.0-47.0); Hemoglobin 13.5 g/dL (12.0-15.0); Immature Granulocyte Absolute 0.01 K/mm3 (0.00-0.031); Immature Granulocyte Percent A 0.2 % (0-0.5); Lymphocytes Absolute Auto 2.03 K/mm3 (0.9-3.2); Lymphocytes Percent Auto 34.9 % (18.3-44.2); Mean Corpuscular Hemoglobin 28.8 pg (26-34); Mean Corpuscular Volume 90.2 fl (80-100); Mean Platelet Volume 9.3 fl (7.4-10.4); Monocytes Absolute Auto 0.5 K/mm3 (0.1-0.6); Monocytes Percent Auto 8.9 % (2.6-8.5); Platelet Count Result 220 k/mm3 (150-375); Red Blood Count 4.68 M/mm3 (4.2-5.4); Red Cell Distribution Width 12.6 % (11.5-14.5); White Blood Count 5.8 K/mm3 (4.5-10.0)
--- OUTSIDE RECORDS SUMMARY | 2025-01-03 09:40 | XMS_ITS | Clinical Summary ---
Author Organization [facility] [address] Address [address] [place] [address] Care Team Providers Care Application Development Intern Name Role Phone Stephanie Grier MD Primary Care Provider Rusty Terrell MD Unavailable [phone] Devyn Weston MD Unavailable Allergies No known [...] 02/24/2024 Assessment & Plan (10/26/2024 10:54 AM BREAKER OPERATOR): Asymptomatic moderate right internal carotid artery stenosis. Patent left internal carotid artery. Unfortunately continues to smoke. She had previously bilateral carotid endarterectomy in [place] 2-1/2 years ago. Recommend risk factor modifications, aspirin, Zetia and follow up in 6 months for routine surveillance with carotid duplex. Assessment & Plan (04/19/2024 11:27 AM CDT): Bilateral high-grade ICA stenosis status post staged carotid endarterectomy done in [place] back in 2021, has had elevated velocities [...] Department Care Team Description 11/28/2024 8:24 AM BREAKER OPERATOR - 11/28/2024 11:59 PM BREAKER OPERATOR Hospital Encounter [facility] Orthopedic and Neuroscience Ctr Pain Mgmt [address] [address] Devyn Weston MD Closed wedge compression fracture of T4 vertebra with routine healing, subsequent encounter (Primary Dx); Closed wedge compression fracture of T5 vertebra with routine healing, subsequent encounter; Age-related osteoporosis with current pathological fracture with routine healing, subsequent encounter Discharge Disposition: Discharge to home or self care 11/28/2024 7:52 AM BREAKER OPERATOR - 11/28/2024 11:59 PM BREAKER OPERATOR Hospital Encounter [facility] Neuro Center Diag Imaging [address] [place] [address] Closed wedge compression fracture of T4 vertebra with routine healing, subsequent encounter; Closed wedge compression fracture of T5 vertebra with routine healing, subsequent encounter Discharge Disposition: Discharge to home or self care 10/25/2024 9:45 AM BREAKER OPERATOR Office Visit [facility] Medical Group Vascular at [address] [place] [address] Willa Burger NP Essential hypertension (Primary Dx); Hyperlipidemia LDL goal <70; Bilateral carotid artery stenosis 10/25/2024 Orders Only [facility] Group Vascular at [address] [place] [address] Manolo Neves MD Bilateral carotid artery stenosis (Primary Dx) 10/16/2024 11:00 AM BREAKER OPERATOR Ancillary Procedure [facility] Vascular and Vein Surgery at [address] [place] [address] Bilateral carotid artery stenosis from Last 3 [...] Comments Blood Pressure 114/68 11/28/2024 8:46 AM BREAKER OPERATOR Pulse 85 11/28/2024 8:46 AM BREAKER OPERATOR Temperature 36.8 C (98.2 F) 11/28/2024 8:46 AM BREAKER OPERATOR Respiratory Rate 18 11/28/2024 8:46 AM BREAKER OPERATOR Oxygen Saturation 96% 11/28/2024 8:46 AM BREAKER OPERATOR Inhaled Oxygen Concentration - - Weight 70.4 kg (155 lb 1.6 oz) 11/28/2024 8:46 A M BREAKER OPERATOR Height 160 cm (5' 3 ) 11/28/2024 8:46 AM BREAKER OPERATOR Body Mass Index 27.47 11/28/2024 8:46 AM BREAKER OPERATOR Plan of Treatment Health Maintenance Due Date [...] Read Routine (OP Routine) 11/28/2024 8:06 AM BREAKER OPERATOR Closed wedge compression fracture of T4 vertebra with routine healing, subsequent encounter Closed wedge compression fracture of T5 vertebra with routine healing, subsequent encounter US CAROTIDS DUPLEX BILATERAL Schedule Routine, Read Routine (OP Routine) 10/16/2024 11:33 AM BREAKER OPERATOR Bilateral carotid artery stenosis from Last 3 Months Results * X-ray thoracic spine 3 views (11/28/2024 8:06 AM BREAKER OPERATOR) Anatomical Region Laterality Modality Spine N/A Computed Radiogr aphy 11/30/2024 2:02 PM BREAKER OPERATOR Narrative 11/30/2024 2:05 PM BREAKER OPERATOR EXAM DESCRIPTION: XR SPINE THORACIC 3 VIEWS [...] Kayode Dodge D.O. AP T: Report ID: [id number] Reading Location: [id number] Procedure Note Kayode Dodge, DO - 11/30/2024 [...] Kayode Dodge D.O. AP T: Report ID: [id number] Reading Location: [id number] Devyn Weston MD IMG XR PROCEDURES Final Result * US Carotids Duplex Bilateral (10/16/2024 11:33 AM BREAKER OPERATOR) LV EF % CONS SCIMAGE Anatomical Region Laterality Modality Vascular Bilateral Ultrasound 10/16/2024 11:0 4 AM BREAKER OPERATOR Narrative 10/18/2024 8:36 AM BREAKER OPERATOR Vascular & Vein Surgery [address] [facility] 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 [address] Carotid Duplex Ultrasound Report Patient Name: DEE BOYLE Jose : 1955 (68y 11m) Study Date: 10/16/2024 11:04:42 AM Gender: F Ammunition Assembly I Laborer: Location: [facility] Ref Provider: MANOLO NEVES Quality: Adequate [...] above. Electronically Signed By: Manolo Neves MD [facility] 10/18/2024 8:35:27 AM BREAKER OPERATOR Manolo Neves MD [facility] PROCEDURES Final Result from Last 3 Months Insurance MEDICARE Care Teams Application Development Intern Relationship Specialty Start Date End Date Stephanie Grier MD [address] [place], [place] [id number] PCP - General Family Medicine 12/07/23 Rusty Terrell MD [address] [facility], [facility] [address] [place] [address] Consulting Physician Neurosurgery 09/06/24 Devyn Weston MD [address] [facility], [facility] [address] [place] [address] Consulting Physician Pain Management 11/28/24
--- OUTSIDE RECORDS SUMMARY | 2025-01-03 09:40 | XMS_ITS | Encounter Summary ---
Author Organization [facility] Healthcare Address [address] [place] [address] Care Team Providers Care Transmitter Tester Name Role Phone Stephanie Grier MD Primary Care Provider Rusty Terrell MD Unavailable [phone] Devyn Weston MD Unavailable Encounter Details Date Type Department Care Team (Late st Contact Info) Description 09/01/2024 Telephone [facility] Orthopedic and Neuroscience Ctr Pain Mgmt [facility]0 [facility] [address] [place] [address] Bernard Dowell RN Social History [...] on filedocumented in this encounter Care Teams Transmitter Tester Relationship Specialty Start Date End Date Stephanie Grier MD [address] [facility] [address] [place] [address] PCP - General Family Medicine 12/07/23 Rusty Terrell MD [address] [facility] [address] [facility], [address] [address] Consulting Physician Neurosurgery 09/06/24 Devyn Weston MD [address] [facility], [address] [address] Consulting Physician Pain Management 11/28/24 documented as of this encounter
--- OUTSIDE RECORDS SUMMARY | 2025-01-03 09:40 | XMS_ITS | Clinical Summary ---
Author Organization [facility] Address [address] [address] Care Team Providers Care Controls Engineer Name Role Phone Stephanie Grier MD Primary Care Provider [phone] Allergies No known active allergies Medications losartan [...] Description 01/10/2025 2:30 PM CDT Office Visit [facility] Oncology and Hematology - [place] [address] [place] [address] [facility] 200 [place] [address] Harpreet Granados MD [address] [facility] [address] [place] [address] Health Maintenance Due Date Last Done Comments Pre-Diabetes and Diabetes Screening 1955 DTAP/TDAP/TD VACCINES (1 - Tdap) 1974 PNEUMOCOCCAL VACCINE 50+ YEARS (1 of 2 - PCV) 10/19/18 75 Traditional Medicare (ACO) Annual Wellness Visit 10/19 BREAST CANCER SCREENING 1995 ZOSTER VACCINE (1 of 2) 2005 OSTEOPOROSIS SCREENING 2020 INFLUENZA VACCINE (#1) 2024 RSV VACCINE (60+ or ) (1 - 1-dose 75+ series) 2030 Insurance Care Teams Controls Engineer Relationship Specialty Start Date End Date Stephanie Grier MD [address] [facility] [address] [place] [address] PCP - General Family Practice 02/22/24
--- OUTSIDE RECORDS SUMMARY | 2025-01-03 09:40 | XMS_ITS | Referral Summary ---
Author Organization [facility] [address] Address [address] [place] [address] Care Team Providers Care Mold Washer Name Role Phone Stephanie Grier MD Primary Care Provider Rusty Terrell MD Unavailable [phone] Devyn Weston MD Unavailable Encounters Date Type Department Care Team Description 11/28/2024 7:52 AM MANAGEMENT TECH - 11/28/2024 11:59 PM MANAGEMENT TECH Hospital Encounter [facility] Orthopedic and Neuro Center Diag Imaging [facility]0 [place] [address] Closed wedge compression fracture of T4 vertebra with routine healing, subsequent encounter; Closed wedge compression fracture of T5 vertebra with routine healing, subsequent encounter Discharge Disposition: Discharge to home or self care 11/28/2024 8:24 AM MANAGEMENT TECH - 11/28/2024 11:59 PM MANAGEMENT TECH Hospital Encounter [facility] Orthopedic and Neuroscience Ctr Pain Mgmt [facility]0 [address] [address] Devyn Weston MD Closed wedge compression fracture of T4 vertebra with routine healing, subsequent encounter (Primary Dx); Closed wedge compression fracture of T5 vertebra with routine healing, subsequent encounter; Age-related osteoporosis with current pathological fracture with routine healing, subsequent encounter Discharge Disposition: Discharge to home or self care 10/25/2024 Orders Only [facility] Medical Group Vascular at [address] [place] [address] Manolo Neves MD Bilateral carotid artery stenosis (Primary Dx) 10/25/2024 9:45 AM MANAGEMENT TECH Office Visit [facility] Vascular at [address] [place] [address] Willa Burger NP Essential hypertension (Primary Dx); Hyperlipidemia LDL goal <70; Bilateral carotid artery stenosis 10/16/2024 11:00 AM MANAGEMENT TECH Ancillary Procedure [facility] Vascular and Vein Surgery at [address] [place] [address] Bilateral carotid artery stenosis from [...] 02/24/2024 Assessment & Plan (10/26/2024 10:54 AM MANAGEMENT TECH): Asymptomatic moderate right internal carotid artery stenosis. Patent left internal carotid artery. Unfortunately continues to smoke. She had previously bilateral carotid endarterectomy in [place] 2-1/2 years ago. Recommend risk factor modifications, aspirin, Zetia and follow up in 6 months for routine surveillance with carotid duplex. Assessment & Plan (04/19/2024 11:27 AM CDT): Bilateral high-grade ICA stenosis status post staged carotid endarterectomy done in [place] back in 2021, has had elevated velocities [...] Comments Blood Pressure 114/68 11/28/2024 8:46 AM MANAGEMENT TECH Pulse 85 11/28/2024 8:46 AM MANAGEMENT TECH Temperature 36.8 C (98.2 F) 11/28/2024 8:46 AM MANAGEMENT TECH Respiratory Rate 18 11/28/2024 8:46 AM MANAGEMENT TECH Oxygen Saturation 96% 11/28/2024 8:46 AM MANAGEMENT TECH Inhaled Oxygen Concentration - - Weight 70.4 kg (155 lb 1.6 oz) 11/28/2024 8:46 A M MANAGEMENT TECH Height 160 cm (5' 3 ) 11/28/2024 8:46 AM MANAGEMENT TECH Body Mass Index 27.47 11/28/2024 8:46 AM MANAGEMENT TECH Plan of Treatment Not on file Procedures Procedure Name Priority Date/Time Associated Diagnosis Comments XR SPINE THORACIC 3 VIEWS Schedule Routine, Read Routine (OP Routine) 11/28/2024 8:06 AM MANAGEMENT TECH Closed wedge compression fracture of T4 vertebra with routine healing, subsequent encounter Closed wedge compression fracture of T5 vertebra with routine healing, subsequent encounter US CAROTIDS DUPLEX BILATERAL Schedule Routine, Read Routine (OP Routine) 10/16/2024 11:33 AM MANAGEMENT TECH Bilateral carotid artery stenosis from Last 3 Months Results * X-ray thoracic spine 3 views (11/28/2024 8:06 AM MANAGEMENT TECH) Anatomical Region Laterality Modality Spine N/A Computed Radiogr aphy 11/30/2024 2:02 PM MANAGEMENT TECH Narrative 11/30/2024 2:05 PM MANAGEMENT TECH EXAM DESCRIPTION: XR SPINE THORACIC 3 VIEWS [...] Kayode Dodge D.O. AP T: Report ID: [id number] Reading Location: [place] [address] Procedure Note Kayode Dodge, DO - 11/30/2024 [...] Kayode Dodge D.O. AP T: Report ID: [id number] Reading Location: [id number] Devyn Weston MD IMG XR PROCEDURES Final Result * US Carotids Duplex Bilateral (10/16/2024 11:33 AM MANAGEMENT TECH) LV EF % CONS SCIMAGE Anatomical Region Laterality Modality Vascular Bilateral Ultrasound 10/16/2024 11:0 4 AM MANAGEMENT TECH Narrative 10/18/2024 8:36 AM MANAGEMENT TECH Vascular & Vein Surgery [address] [place] [address] Carotid Duplex Ultrasound Report Patient Name: DEE BOYLE E : 1955 (68y 11m) Study Date: 10/16/2024 11:04:42 AM Gender: F Train Announcer: Location: [facility] Ref Provider: MANOLO NEVES Quality: [...] above. Electronically Signed By: Manolo Neves MD [facility] 10/18/2024 8:35:27 AM MANAGEMENT TECH Procedure Note Manolo Neves MD - 10/18/2024 Vascular & Vein Surgery [address] [place] [address] Carotid Duplex Ultrasound Report Patient Name: DEE BOYLE E : 1955 (68y 11m) Study Date: 10/16/2024 11:04:42 AM Gender: F Train Announcer: Location: [facility] Provider: MANOLO NEVES Quality: Adequate Order Provider: [...] Manolo Neves MD B 10/18/2024 8:35:27 AM MANAGEMENT TECH Manolo Neves MD [facility] PROCEDURES Final Result from Last 3 Months Insurance MEDICARE Care Teams Mold Washer Relationship Specialty Start Date End Date Stephanie Grier MD [address] [facility] [address] [facility] 120 [place] [id number] PCP - General Family Medicine 12/07/23 Rusty Terrell MD [facility]1 [facility] [address] [facility], [address] [address] Consulting Physician Neurosurgery 09/06/24 Devyn Weston MD [address] [facility] [address] [facility], [address] [address] Consulting Physician Pain Management 11/28/24
[2025-01-03 10:03] LABS: Alanine Aminotransferase 20 U/L (6-35); Albumin Level 4.1 g/dL (3.5-5.1); Alkaline Phosphatase 58 U/L (38-126); Anion Gap 7 mmol/L (4-12); Aspartate Amino Transferase 27 U/L (14-36); Bilirubin,Total 0.5 mg/dL (0.2-1.3); Blood Urea Nitrogen 10 mg/dL (7-17); Calcium 8.9 mg/dL (8.4-10.2); Carbon Dioxide 27 mmol/L (22-30); Chloride 102 mmol/L (98-107); Estimated Glomerular Filt Rate 56; Glucose 116 mg/dL (65-110); Potassium 4.1 mmol/L (3.4-5.0); Sodium 136 mmol/L (137-145)
[2025-01-03 10:34] LABS: Carcinoembryonic Antigen 3.5 ng/mL (0.0-3.0)
== END 2025-01-03 08:57 | disposition home or self-care (01) ==
LOC: ANHLAB 08:58
PROVIDERS: PCP Family Medicine; Visit Provider Internal Medicine Hematology & Oncology
DX: C18.6 Malignant neoplasm of descending colon (principal)
CPT/HCPCS: 36415; 80053; 82378; 85025

== ENCOUNTER 2025-03-22 08:47 | Outpatient (CLI) | payer MEDICARE, SELFPAY ==
--- NOTE | ~2025-03-22 | US_ITS ---
EXAMINATION: US aorta [facility] DATE: 03/23/2025 0:13 CDT INDICATION: Tobacco abuse TECHNIQUE: Grayscale, color Doppler, and pulsed Doppler images of the aorta and common iliac arteries were obtained. COMPARISON: None. FINDINGS: The proximal aorta measures 2.5 x 2.5 cm The mid aorta measures 2.0 x 2.0 cm The distal aorta measures 2.1 x 2.0 cm The right common internal iliac artery measures 1.1 x 0.9 cm. The left common iliac artery measures 1.0 x 0.6 cm. IMPRESSION: 1. No sonographic evidence of an abdominal aortic aneurysm, as detailed above Reviewed, dictated and finalized at location A.
== END 2025-03-22 08:48 | disposition home or self-care (01) ==
PROVIDERS: PCP Family Medicine; Visit Provider Internal Medicine Cardiovascular Disease
DX: Z13.6 Encounter for screening for cardiovascular disorders (principal); Z72.0 Tobacco use
CPT/HCPCS: 76706

== ENCOUNTER 2025-04-04 14:01 | Outpatient (CLI) | payer MEDICARE, SELFPAY ==
--- OUTSIDE RECORDS SUMMARY | 2025-04-04 14:13 | XMS_ITS | Referral Summary ---
Author Organization [facility] [address] [place] [address] [address] [place] [address] Care Team Providers Care Clinical Unit Coordinator Name Role Phone Rusty Terrell MD Unavailable Devyn Weston MD Unavailable Jem Stearns MD Primary Care Provider Encounters Date Type Department Care Team Description 04/04/2025 Telephone [facility] Floor 8 [place] [address] Melida Mondragon MD 03/27/2025 Results Follow-Up [facility] Cardiology [address] [facility] [address], [place] [address] Sandra Mosher NP US Abdominal Aortic Aneurysm Screening 03/27/2025 1:30 PM CDT Office Visit [facility] Floor 6 [place] [address] Melida Mondragon MD Melanoma of knee, right (HCC) 02/28/2025 11:15 AM CDT Office Visit [facility] Cardiology [address] [facility] [address] [place] [address] Gerhard Griffin MD Bilateral carotid artery stenosis (Primary Dx); Essential hypertension; Hyperlipidemia LDL goal <70; Benign hypertensive heart disease without heart failure; PSVT (paroxysmal supraventricular tachycardia); Tobacco abuse 02/23/2025 Orders Only [facility] [address] [place] [address] Alma Hernandez MD PhD 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) 02/09/2025 Orders Only [facility] Surgery [address] [facility] Floor 8 [place] [address] Renettat, Alma Torers MD PhD 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) (Primary Dx) from Last 3 Months Allergies No known active allergies Medications losartan (COZAAR) 25 mg tabletIndication s:hypertension Take 1 tablet (25 mg total) by mouth career placement specialist before breakfast 02/14/20 24 Active rosuvastatin (CRESTOR) 20 mg tabletIndication s:hyperlipidemia Take 1 tablet (20 mg total) by mouth career placement specialist before breakfast 02/14/20 24 Active ezetimibe (ZETIA) 10 mg tabletIndication s:hyperlipidemia Take 1 tablet (10 mg total) by mouth career placement specialist before breakfast 02/14/20 24 Active aspirin 81 mg enteric coated tabletIndication s:prevention of thrombosis Take 1 tablet (81 mg total) by mouth career placement specialist before breakfast Active carvediloL (COREG) 6.25 mg tabletIndication s:Benign hypertensive heart disease without heart failure,Essentia l hypertension Take 1 tablet (6.25 mg total) by mouth 2 (two) times a day with meals 180 tablet 3 02/24/20 24 Active Additional Information Patient taking differently:6.25 mg oralDaily (early AM), Indications: hypertension, Reported on 03/28/2025 HYDROcodone-acet aminophen (NORCO) 5-325 mg per tabletIndication s:Pain Take 1 tablet by mouth every 6 (six) hours as needed for pain 15 tablet 08/28/20 24 Active ibuprofen (ADVIL,MOTRIN) 400 mg tabletIndication s:Pain Take 1 tablet (400 mg total) by mouth every 6 (six) hours as needed for pain 025 Discontin ued(Thera py completed ) Active Problems Problem Noted Date Diagnosed Date Malignant melanoma of right lower extremity incl uding hip 03/27/2025 Tobacco abuse 02/28/2025 Essential hypertension 02/24/2024 Assessment & Plan (04/19/2024 11:27 AM CDT): Stable continue Coreg 6.25 mg Hyperlipidemia LDL goal <70 02/24/2024 Assessment & Plan (04/19/2024 11:27 AM CDT): Stable continue Crestor 20 mg PSVT (paroxysmal supraventricular tachycardia) 0 02/24/2024 History of CVA (cerebrovascular accident) 2023 Bilateral carotid artery stenosis 02/24/2024 Assessment & Plan (10/26/2024 10:54 AM AIRPORT UTILITY WORKER): Asymptomatic moderate right internal carotid artery stenosis. Patent left internal carotid artery. Unfortunately continues to smoke. She had previously bilateral carotid endarterectomy in [place] 2-1/2 years ago. Recommend risk factor modifications, aspirin, Zetia and follow up in 6 months for routine surveillance with carotid duplex. Assessment & Plan (04/19/2024 11:27 AM CDT): Bilateral high-grade ICA stenosis status post staged carotid endarterectomy done in [place] back in 2021, has had elevated velocities [...] Every Day Cigarettes Passive Smoke Exposure: Past Smokeless Tobacco: Never Tobacco Cessation:Ready to Q uit: Not Asked; Counseling Given: Not Answered AUDIT-C Answer Date Recorded Q1: How often do you have a drink containing alcohol? Never 03/28/2025 Q2: How many drinks containi ng alcohol do you have on a typical day when you are drinking? Patient does not drink Q3: How often do you have si x or more drinks on one occasion? Never 03/28/2025 Personal Safety Answer Date Recorded Have you [...] Sign Reading Time Taken Comments Blood Pressure 128/72 03/27/2025 12:28 PM CDT Pulse 110 03/27/2025 12:28 PM CDT Temperature 37.1 C (98.8 F) 03/27/2025 12:28 PM CDT Respiratory Rate 18 03/27/2025 12:28 PM CDT Oxygen Saturation 100% 03/27/2025 12:28 PM CDT Inhaled Oxygen Concentration - - Weight 67.6 kg (149 lb) 03/28/2025 11:05 AM CDT Height 160 cm (5' 3) 03/28/2025 11:05 AM CDT Body Mass Index 26.39 03/28/2025 11:05 AM CDT Plan of Treatment Upcoming Encounters Date Type Department Care Team (Latest Contact Info) Description 04/09/2025 3:45 PM CDT Hospital Encounter [facility] ([facility]) [address] [place] [address] Melida Mondragon MD [address] [phone] [place] [address] 04/09/2025 3:45 PM CDT Anesthesia Event [facility] ([facility]) [address] [place] [address] [place] [address] [place] [address] [address] [phone] [place] [address] 04/09/2025 3:45 PM CDT - 04/09/2025 5:25 PM CDT Surgery [facility] ([facility]) [address] [place] [address] Melida Mondragon MD [address] [phone] [place] [address] WIDE LOCAL EXCISION NEVUS/MASS/TUMOR/LE MORRO Scheduled Procedures Name Priority Associated Diagnoses Date/Ti me LOCAL EXCISION NEVUS/MASS/TUMOR/LESION 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) 04/09/2025 3:45 PM CDT Goals Goal Patient Goal Type Associated Problems Recent Progress Patient-Stated? Author Autogenerat ed Goal Care Plan Autogenerated Problem No Rafal Tarango Procedures Procedure Name Priority Date/Time Associated Diagnosis Comments POCT LIPID PANEL Routine 02/28/2025 11:1 9 AM CDT Hyperlipidemia LDL goal <70 US ABDOMINAL AORTIC ANEURYSM SCREENING Schedule Routine, Read Routine (OP Routine) 02/28/2025 Tobacco abuse SURGICAL PATHOLOGY Routine 02/23/2025 1:10 PM CDT 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) from Last 3 Months Results * POCT lipid panel (02/28/2025 11:19 AM CDT) Cholesterol, POC 144 <200 MG/DL HDL, POC 61 >=40 mg/dL Triglycerides, POC 99 <=149 mg/dL LDL Cholesterol POC 63 <=129 mg/dL Chol/HDL Ratio, POC 1.0 NONE Non-HDL Cholesterol, POC 83 NONE mg/dL Cholesterol Total, POC 144 30 - 199 mg/dL Capillary blood 02/28/2025 1 1:19 AM CDT us Gerhard Griffin MD POINT OF CARE TEST ORDERA BLES Final Result * US Abdominal Aortic Aneurysm Screening (02/28/2025) Anatomical Region Laterality Modality Abdomen Ultrasound us Gerhard Griffin MD IMG US PROCEDURES Final R esult * Surgical pathology (02/23/2025 1:10 PM CDT) Tissue (Miscellaneous) 02/23/2025 1:10 PM CDT 02/01/2025 Narrative [facility] - 02/26/2025 4:28 PM CDT EPIC results best viewed via link to PDF [facility] - D[facility]atopathology [facility]0 [facility], [address], [place] [address] [email or web address] CONSULT REPORT FINAL Note to Patients: This report may contain a detailed description of human tissue sent by a health care provider to the laboratory for pathologic evaluation. The content of this report is essential for diagnosis and may provide important critical findings. This information may be unfamiliar to patients to review without a medical professional present. It is advised that the patient review this report in the presence of a health care provider who can answer questions and explain the details. PATIENT INFORMATION PATIENT NAME: ELISHA BOYLE SEX: F : BAZAKI SPECIMEN INFORMATION COLLECTED: 02/01/2025 RECEIVED: 02/23/2025 REPORTED: 02/26/2025 PHYSICIAN INFORMATION Vladislav Lazo M.D.: [facility] Surgery, [facility], [address], [place] [address], ADDITIONAL PHYSICIANS [facility] - Dept. Of Dermatology DERMATOPATHOLOGY REPORT RESULTS DIAGNOSIS: SKIN, RIGHT KNEE, SHAVE BIOPSY (CASE# [id number], 1 SLIDE): MALIGNANT MELANOMA, APPROXIMATELY 0.9 MM IN THICKNESS, NON-ULCERATED CAP Approved Case Summary for Melanoma of the Skin Specimen Procedure: Shave biopsy Tumor Site: Knee Laterality: Right Histologic Type: Superficial spreading Breslow Depth: 0.9 mm Ulceration: Not identified Mitotic rate: None identified Microsatellitosis: Cannot be determined Lymphovascular Invasion: Not identified Neurotropism: Not identified Tumor-infiltrating Lymphocytes: Present, nonbrisk Tumor Regression: Not identified Pathologic Staging: Primary Tumor (pT): pT1b Regional Lymph Nodes (pN): pNX Distant Metastasis (pM): N/A dh/ajrr By this signature, I attest that the above diagnosis is based upon my personal examination of the slides(and/or other material indicated in the diagnosis). Vijay Hanna M.D. Report Electronically Reviewed and Signed Out By Vijay Hanna M.D. 02/26/2025 16:28:09 CLINICAL INFORMATION MALIGNANT MELANOMA SPECIMEN DATAMICROSCOPIC DESCRIPTION: There is a proliferation of atypical melanocytes arranged as single cells and as nests within the epidermis, at the dermo-epidermal junction and at all levels of the epidermis, and as nests within the dermis, where they are associated with a patchy inflammatory cell infiltrate containing lymphocytes and melanophages. (C43.9) GROSS DESCRIPTION: Received for review is 1 H&E stained glass slide. The slide is labeled with the original accession [id number], accompanied by a corresponding pathology report. The material originates from [facility]. Clerical Data Follows A; [id number] The characteristics of special, immunohistochemical, and immunofluorescence stains and in-situ hybridization tests performed by the [facility] were deemed acceptable in ongoing water quality technician measures and in compliance with regulations drawn from the Clinical Laboratory Improvement Act by9261 (CLIA '88). Control reactions for all stains performed were deemed adequate and appropriate by a pathologist prior to evaluation of patient tissue. Some diagnoses were rendered with the assistance of laboratory-developed tests utilizing analyte-specific reagents; the performance characteristic of these tests were determined by [facility] and are not cleared or approved by the US Food an Drug administration. Laboratory developed test may only be performed in a facility that is certified by the [facility] as a high-complexity laboratory under CLIA '88. These tests are used for clinical purposes and are not investigational. Alma Hernandez MD PhD LAB PATHOLOGY ORDERABLES F inal Result [facility] [address] [address] from Last 3 Months Additional Health Concerns Active Problems Noted Date Diagnosed Date Autogenerated Problem 03/27/2025 Insurance MEDICARE MEDICARE Care Teams Clinical Unit Coordinator Relationship Specialty Start Date End Date Jem Stearns MD [address] [facility] 120 [place] [address] PCP - General Family Medicine 02/28/25 Rusty Terrell MD Consulting Physician Neurosurgery 09/06/24 Devyn Weston MD [address] [facility], [facility] [address] [place] [address] Consulting Physician Pain Management 11/28/24
--- OUTSIDE RECORDS SUMMARY | 2025-04-04 14:13 | XMS_ITS | Clinical Summary ---
Author Organization [facility] [address] Address [address] [place] [address] Care Team Providers Care Yield Improvement Engineer Name Role Phone Rusty Terrell MD Unavailable [phone] Devyn Weston MD Unavailable Jem Stearns MD Primary Care Provider Allergies No known active allergies Medications losartan (COZAAR) 25 mg tabletIndication s:hypertension Take 1 tablet (25 mg total) by mouth purchase order checker before breakfast 02/14/20 24 Active rosuvastatin (CRESTOR) 20 mg tabletIndication s:hyperlipidemia Take 1 tablet (20 mg total) by mouth purchase order checker before breakfast 02/14/20 24 Active ezetimibe (ZETIA) 10 mg tabletIndication s:hyperlipidemia Take 1 tablet (10 mg total) by mouth purchase order checker before breakfast 02/14/20 24 Active aspirin 81 mg enteric coated tabletIndication s:prevention of thrombosis Take 1 tablet (81 mg total) by mouth purchase order checker before breakfast Active carvediloL (COREG) 6.25 mg [...] 02/24/2024 Assessment & Plan (10/26/2024 10:54 AM LEGAL RECOVERY SPECIALIST): Asymptomatic moderate right internal carotid artery stenosis. [...] Type Department Care Team Description 04/04/2025 Telephone [facility] Surgery [facility]0 [facility] Floor 8 [place] [address] Melida Mondragon MD 03/27/2025 1:30 PM CDT Office Visit [facility] Surgery [facility] Floor 6 [place] [address] Melida Mondragon MD Melanoma of knee, right (HCC) 03/27/2025 Results Follow-Up [facility]iology [address] [facility] [address] [address] Sandra Mosher NP Abdominal Aortic Aneurysm Screening 02/28/2025 11:15 AM CDT Office Visit [facility] Cardiology [address] [facility] [address] [place] [address] Gerhard Griffin MD Bilateral carotid artery stenosis (Primary Dx); Essential hypertension; Hyperlipidemia LDL goal <70; Benign hypertensive heart disease without heart failure; PSVT (paroxysmal supraventricular tachycardia); Tobacco abuse 02/23/2025 Orders Only [facility] [address] [place] [address] Alma Hernandez MD PhD 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) 02/09/2025 Orders Only [facility] Surgery [address] [place] [address] Floor [address] [place] [address] Alma Hernandez MD PhD 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) (Primary Dx) from Last 3 Months Surgical History Surgery Date Site/Laterality Comments HERNIA REPAIR 09/27/1964 - 09/26/1965 APPENDECTOMY 09/27/1970 - 09/26/1971 CAROTID ENDARTERECTOMY 09/27/2021 - 09/26/2022 Bilateral COLON SURGERY 09/27/2020 - 09/26/2021 partial colon removal due to ca PORTACATH PLACEMENT 09/27/2020 - 09/26/2021 PORT REMOVAL 09/27/2020 - 09/26/2021 Medical History Medical History Date Comments Hypertension Hyperlipidemia Heart murmur Arrhythmia History of colon cancer Stroke (HCC) Family History Medical History Relation Name Comments No Known Problems Brother 1 Heart disease Brother 2 Cancer Father Heart attack Mother Stroke Mother Heart disease Sister Anesthesia problems Neg Hx Relation Name Status Comments Brother 1 Alive [...] Description 04/09/2025 3:45 PM CDT Hospital Encounter [facility] [address] [place] [address] Melida Mondragon MD [address] [phone] [place] [address] 04/09/2025 3:45 PM CDT Anesthesia Event [facility] ([facility]) [address] [place] [address] Nicole Gutierrez NP [address] [facility] [address] [phone] [place] [address] 04/09/2025 3:45 PM CDT - 04/09/2025 5:25 PM CDT Surgery [facility] ([facility]) [address] [place] [address] Melida Mondragon MD [address] [phone] [place] [address] WIDE LOCAL EXCISION NEVUS/MASS/TUMOR/LE MORRO Scheduled Procedures Name Priority Associated Diagnoses Date/Ti me LOCAL EXCISION NEVUS/MASS/TUMOR/LESION 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) 04/09/2025 3:45 PM CDT Health Maintenance Due Date Last Done Comments Breast Cancer Screening-Mammogram 1955 Colon Cancer Screening-Colonoscopy 1955 Depression Screening 1955 Fall Risk Assessment 1955 Hepatitis C Screening 1955 Osteoporosis Screening-Bone Density Scan 1955 DTaP/Tdap/Td Vaccine (1 - Tdap) 1966 Hepatitis B Screening 1973 Pneumococcal vaccine 65+ (1 of 2 - PCV) 1974 Zoster Vaccine (1 of 2) 2005 Well Visit 65+ 2020 Influenza Vaccine (#1) 2025 Goals Goal Patient Goal Type Associated Problems [...] Capillary blood 02/28/2025 1 1:19 AM CDT Gerhard Griffin MD POINT OF CARE TEST ORDERA BLES Final Result * US Abdominal Aortic Aneurysm Screening (02/28/2025) Anatomical Region Laterality Modality Abdomen Ultrasound us Gerhard Griffin MD IMG US PROCEDURES Final R esult * Surgical pathology (02/23/2025 1:10 PM CDT) Tissue (Miscellaneous) 02/23/2025 1:10 PM CDT 02/01/2025 Narrative [facility] - 02/26/2025 4:28 PM CDT EPIC results best viewed via link to PDF [facility] D[facility]opathology Center [address] [place] [address], [address], [place] [address] [email or web address] CONSULT REPORT FINAL Note to Patients: This [...] the details. PATIENT INFORMATION PATIENT NAME: ELISHA JONES SEX: F : DODIANE SPECIMEN INFORMATION COLLECTED: 02/01/2025 RECEIVED: 02/23/2025 REPORTED: 02/26/2025 PHYSICIAN INFORMATION Vladislav Lazo M.D.: [facility] Surgery, [facility]1 [facility], [address] [place] [address], ADDITIONAL PHYSICIANS [facility] - Dept. Of Dermatology DERMATOPATHOLOGY REPORT RESULTS DIAGNOSIS: SKIN, RIGHT KNEE, SHAVE BIOPSY (CASE# [id number], 1 SLIDE): MALIGNANT MELANOMA, APPROXIMATELY 0.9 MM [...] slide is labeled with the original accession [id number], accompanied by a corresponding pathology report. The material originates from [facility]. Clerical Data Follows A; [id number] The characteristics of special, immunohistochemical, and immunofluorescence stains and in-situ hybridization tests performed by the [facility] were deemed acceptable in ongoing quality control manager measures and in compliance with regulations drawn from the Clinical Laboratory Improvement Act fp7097 (CLIA '88). Control reactions for all stains performed were deemed adequate and appropriate by a pathologist prior to evaluation of patient tissue. Some diagnoses were rendered with the assistance of laboratory-developed tests utilizing analyte-specific reagents; the performance characteristic of these tests were determined by [facility] and are not cleared or approved by the US Food an Drug administration. Laboratory developed test may only be performed in a facility that is certified by the [facility] as a high-complexity laboratory under CLIA '88. These tests are used for clinical purposes and are not investigational. Alma Hernandez MD PhD LAB PATHOLOGY ORDERABLES F inal Result [facility] [address] Floor [facility] 1 [place] [address] from Last 3 Months Additional Health Concerns Active Problems Noted Date Diagnosed Date Autogenerated Problem 03/27/2025 Insurance [place] [address] MEDICARE Care Teams Yield Improvement Engineer Relationship Specialty Start Date End Date Jem Stearns MD [address] [facility] [address] [place] [address] PCP - General Family Medicine 02/28/25 Rusty Terrell MD Consulting Physician Neurosurgery 09/06/24 Devyn Weston MD [address] [facility], [facility] [address] [place] [address] Consulting Physician Pain Management 11/28/24
--- OUTSIDE RECORDS SUMMARY | 2025-04-04 14:14 | XMS_ITS | Encounter Summary ---
Author Organization [facility] Address [address] [place] [address] Phone Care Team Providers Care Polymerization Engineer Name Role Phone Rusty Terrell MD Unavailable [phone] Devyn Weston MD Unavailable Jem Stearns MD Primary Care Provider Encounter Details Date Type Department Care Team (Late st Contact Info) Description 04/04/2025 Telephone [facility] Surgery [address] [facility] Floor 8 [place] [address] Melida Mondragon MD [address] [facility] [phone] [place] [address] Social History Tobacco Use Types Packs/Day Years Used Date Smoking Tobacco: Every Day Cigarettes Passive Smoke Exposure: Past Smokeless Tobacco: Never AUDIT-C Answer Date Recorded Q1: How often [...] on file documented as of this encounter Miscellaneous Notes * Telephone Encounter - Sheng Stewart RMA - 04/04/2025 1:53 PM CDT Called and left VM for patient to reschedule surgery with her. * Telephone Encounter - Venkatesh Overton - 04/04/2025 11:25 AM CDT Patient Query: Reschedule Surgery Was an attempt to transfer to the assigned clinical staff or backline? No Reason for call?: Patient needs to reschedule surgery Who is the caller: Patient What is the best number for them to contact for a call back: [phone] documented in this encounter Plan of Treatment Upcoming Encounters Date Type Department Care Team (Latest Contact Info) Description 04/09/2025 3:45 PM CDT Hospital Encounter [facility] ([facility]) [address] [place] [address] Melida Mondragon MD [address] [phone] [place] [address] 04/09/2025 3:45 PM CDT Anesthesia Event [facility] ([facility]) [address] [place] [address] Nicole Gutierrez NP [address] [facility] [address] [phone] [place] [address] 04/09/2025 3:45 PM CDT - 04/09/2025 5:25 PM CDT Surgery [facility] Operating Room [facility] ([facility]) [address] [place] [address] Melida Mondragon MD [address] [phone] [place] [address] WIDE LOCAL EXCISION NEVUS/MASS/TUMOR/LE MORRO Scheduled Procedures Name Priority Associated Diagnoses Date/Ti me LOCAL EXCISION NEVUS/MASS/TUMOR/LESION 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) 04/09/2025 3:45 PM CDT documented as of this encounter Goals Goal Patient Goal Type Associated Problems Recent Progress Patient-Stated? Author Autogenerat ed Goal Care Plan Autogenerated Problem No Rafal Tarango documented as of this encounter Visit Diagnoses Not on filedocumented in this encounter Additional Health Concerns Active Problems Noted Date Diagnosed Date Autogenerated Problem 03/27/2025 documented as of this encounter Care Teams Polymerization Engineer Relationship Specialty Start Date End Date Jem Stearns MD [address] [facility] [address] [place] [address] PCP - General Family Medicine 02/28/25 Rusty Terrell MD Consulting Physician Neurosurgery 09/06/24 Devyn Weston MD [address] [facility], [facility] [address] [place] [address] Consulting Physician Pain Management 11/28/24 documented as of this encounter
--- OUTSIDE RECORDS SUMMARY | 2025-04-04 14:14 | XMS_ITS | Patient Health Record ---
Author Organization [facility] Address [address] [address] Care Team Providers Care Tick Inspector Name Role Phone Nimesh Dunham Primary Care Provider America Barriga Unavailable [phone] Reason For Referral No Information Social History [...] W/U Status Risk Notes Problem Essential hypertension (49686821) Benign essential HTN (I10) Active confirmed Problem Essential hypertension (36689127) Essential (primary) hypertension (I10) Active confirmed Problem 12280325 Pain, joint, kne e, left (M25.562) Active confirmed Problem Malignant tumor of transverse colon (292975824) 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 Problem 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) Active confirmed Problem 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) 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 (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 Problem 76962410 Left sided sciatica (M54.32) Active confirmed Problem Hyperlipidemia (40773027) Other hyperlipidemia (E78.49) Active confirmed Problem Malignant tumor of transverse colon (178616948) 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
--- OUTSIDE RECORDS SUMMARY | 2025-04-04 14:14 | XMS_ITS | Clinical Summary ---
Author Organization [facility] Address [address] [place] [address] Care Team Providers Care Payment Collector Name Role Phone Jem Stearns MD Primary Care Provider Allergies [...] Encounters Date Type Department Care Team Description 02/14/2025 External Device Data STL ABSTRACTION Provider, Abstract 02/13/2025 External Device Data [facility] ABSTRACTION Provider, Abstract 01/10/2025 2:30 PM CDT Office Visit [facility] [place] [address] [place] [address] Harpreet Granados MD Malignant neoplasm of descending colon (CMS/HCC) (Primary Dx) 01/03/2025 Orders Only [facility] [place] [address] [place] [address] Harpreet Granados MD from Last 3 Months Family History Relation Name Status Comments Brother Alive Daughter Alive Father Mother Sister Alive Son Alive Social History Tobacco Use Types Packs/Day Years Used Date Smoking Tobacco: Some Days Cigarettes 0.2 55.5 Started: 1970 Smokeless Tobacco: Never Tobacco Cessation:Ready [...] Sign Reading Time Taken Comments Blood Pressure 120/72 01/10/2025 2:24 PM CDT Pulse 92 01/10/2025 2:24 PM CDT Temperature 37 C (98.6 F) 01/10/2025 2:24 PM CDT Respiratory Rate 15 01/10/2025 2:24 PM CDT Oxygen Saturation 96% 01/10/2025 2:24 PM CDT Inhaled Oxygen Concentration - - Weight 69.3 kg (152 lb 12.8 oz) 01/10/2025 2:24 PM CDT Height 160 cm (5' 3) 02/28/2024 1:40 PM CDT Body Mass Index 27.07 02/28/2024 1:40 PM CDT Plan of Treatment Upcoming Encounters Date Type Department Care Team (Late st Contact Info) Description 04/11/2025 11:45 AM CDT Office Visit [facility] [place] [address] [facility] [address] [place] [address] Harpreet Granados MD [address] [facility] [address] [place] [address] Health Maintenance Due Date Last Done Comments Pre-Diabetes and Diabetes Screening 1955 DTAP/TDAP/TD VACCINES (1 - Tdap) 1974 PNEUMOCOCCAL VACCINE 50+ YEARS (1 of 2 - PCV) 10/19/18 75 Traditional Medicare (ACO) Annual Wellness Visit 10/19 BREAST CANCER SCREENING 1995 ZOSTER VACCINE (1 of 2) 2005 OSTEOPOROSIS SCREENING 2020 INFLUENZA VACCINE (#1) 2025 RSV VACCINE (60+ or ) (1 - 1-dose 75+ series) 2030 Procedures Procedure Name Priority Date/Time Associated Diagnosis Comments CT ABDOMEN PELVIS W CONTRAST Routine 01/03/2025 4:19 PM CDT from Last 3 Months Results * CT ABDOMEN PELVIS W CONTRAST (01/03/2025 4:19 PM CDT) Anatomical Region Laterality Modality Abdomen Computed Tomogra phy Harpreet Granados MD CT ORDERABLES Final Result from Last 3 Months Insurance MEDICARE PART A AND B Care Teams Payment Collector Relationship Specialty Start Date End Date Jem Stearns MD [address] [facility] [address] [facility] [address] [place] [address] PCP - General Family Practice 01/10/25
--- OUTSIDE RECORDS SUMMARY | 2025-04-04 14:14 | XMS_ITS | Encounter Summary ---
Author Organization [facility] Address [address] [place] [address] Care Team Providers Care Rn Wound Care Name Role Phone Rusty Terrell MD Unavailable [phone] Devyn Weston MD Unavailable Jem Stearns MD Primary Care Provider Encounter Details Date Type Department Care Team (Late st Contact Info) Description 03/27/2025 Results Follow-Up [facility] Cardiology [address] [facility] [address] [place] [phone] Sandra Mosher NP [address] [facility] [place] [address] [place] [address] Abdominal Aortic Aneurysm Screening Social History Tobacco Use Types Packs/Day Years Used Date Smoking Tobacco: Every Day Cigarettes Passive Smoke Exposure: Past AUDIT-C Answer Date Recorded Q1: How often [...] on file documented as of this encounter Functional Status * Audit-C Score Answer Date of Assessment Author 0 03/28/2025 11:12 AM CDT Liz Kim RN * Question Answer Date of Assessment Author Q1: How often do you have a drink containing alcohol? Never 03/28/2025 11:12 AM CDT Liz Kim RN Q2: How many drinks containing alcohol do you have on a typical day when you are drinking? Patient does not drink 03/28/2025 11:12 AM CDT Liz Kim RN Q3: How often do you have six or more drinks on one occasion? Never 03/28/2025 11:12 AM CDT Liz Kim RN documented as of this encounter Plan of Treatment Upcoming Encounters Date Type Department Care Team (Latest Contact Info) Description 04/09/2025 3:45 PM CDT Hospital Encounter [facility] Operating [facility] ([facility]) [address] [place] [address] Melida Mondragon MD [address] [facility] [phone] [place] [address] 04/09/2025 3:45 PM CDT Anesthesia Event [facility] Operating [facility] ([facility]) [address] [place] [address] Nicole Gutierrez NP [address] [place] [address] [address] [phone] [place] [address] 04/09/2025 3:45 PM CDT - 04/09/2025 5:25 PM CDT Surgery [facility] Operating [facility] ([facility]) [address] [place] [address] Melida Mondragon MD [address] [facility] [phone] [place] [address] WIDE LOCAL EXCISION NEVUS/MASS/TUMOR/LE MORRO Scheduled Procedures [...] documented as of this encounter Care Teams Rn Wound Care Relationship Specialty Start Date End Date Jem Stearns MD [address] [facility] 120 [place] [address] PCP - General Family Medicine 02/28/25 Rusty Terrell MD Consulting Physician Neurosurgery 09/06/24 Devyn Weston MD [address] [facility], [facility] [address] [place] [address] Consulting Physician Pain Management 11/28/24 documented as of this encounter
--- OUTSIDE RECORDS SUMMARY | 2025-04-04 14:14 | XMS_ITS | Encounter Summary ---
Author Organization [facility] Healthcare Address [address] [place] [address] Care Team Providers Care Chassis Mechanic Name Role Phone Stephanie Grier MD Primary Care Provider Rusty Terrell MD Unavailable [phone] Devyn Weston MD Unavailable Jem Stearns MD Primary Care Provider Encounter Details Date Type Department Care Team (Late st Contact Info) Description 09/01/2024 Telephone [facility] Pain [address] [address] Bernard Dowell, MIT[place] Social History Tobacco Use Types Packs/Day Years [...] Description 04/09/2025 3:45 PM CDT Hospital Encounter [facility] Operating Room [facility]) [facility] [place] [address] Melida Mondragon MD [address] [phone] [place] [address] 04/09/2025 3:45 PM CDT Anesthesia Event [facility] Operating [facility] ([facility]) [address] [place] [address] Nicole Gutierrez NP [address] [facility] [address] [phone] [place] [address] 04/09/2025 3:45 PM CDT - 04/09/2025 5:25 PM CDT Surgery [facility] Operating [facility]) [address] [place] [address] Melida Mondragon MD [address] [phone] [place] [address] WIDE LOCAL EXCISION NEVUS/MASS/TUMOR/LE MORRO Scheduled Procedures Name Priority Associated Diagnoses Date/Ti me LOCAL EXCISION NEVUS/MASS/TUMOR/LESION 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) 04/09/2025 3:45 PM CDT documented as of this encounter Visit Diagnoses Not on filedocumented in this encounter Care Teams Chassis Mechanic Relationship Specialty Start Date End Date Stephanie Grier MD [address] [address] PCP - General Family Medicine 12/07/23 02/27/25 Jem Stearns MD [address] [address] PCP - General Family Medicine 02/28/25 Rusty Terrell MD [address] [address] Consulting Physician Neurosurgery 09/06/24 Devyn Weston MD [address] [facility], [place] [address] Consulting Physician Pain Management 11/28/24 documented as of this encounter
[2025-04-04 14:16] LABS: Hematocrit 45.8 % (37.0-47.0); Hemoglobin 14.6 g/dL (12.0-15.0); Immature Granulocyte Percent A 0.3 % (0-0.5); Lymphocytes Absolute Auto 2.28 K/mm3 (0.9-3.2); Mean Corpuscular HGB Conc 31.9 g/dl (32-36); Mean Corpuscular Hemoglobin 28.2 pg (26-34); Mean Corpuscular Volume 88.4 fl (80-100); Nucleated Red Blood Cells Absolute Auto 0.000 K/mm3 (0.0-0.012); Nucleated Red Blood Cells Perc 0.0 % (0.0-0.2); Platelet Count Result 252 k/mm3 (150-375); Red Blood Count 5.18 M/mm3 (4.2-5.4); White Blood Count 7.1 K/mm3 (4.5-10.0)
[2025-04-04 16:24] LABS: Alanine Aminotransferase 22 U/L (6-35); Albumin Level 4.4 g/dL (3.5-5.1); Alkaline Phosphatase 53 U/L (38-126); Anion Gap 10 mmol/L (4-12); Aspartate Amino Transferase 62 U/L (14-36); Bilirubin,Total 0.5 mg/dL (0.2-1.3); Blood Urea Nitrogen 10 mg/dL (7-17); Calcium 9.4 mg/dL (8.4-10.2); Carbon Dioxide 23 mmol/L (22-30); Chloride 104 mmol/L (98-107); Estimated Glomerular Filt Rate 57; Glucose 136 mg/dL (65-110); Potassium 4.3 mmol/L (3.4-5.0); Sodium 137 mmol/L (137-145); Total Protein 7.5 g/dL (6.3-8.2)
[2025-04-04 17:07] LABS: Carcinoembryonic Antigen 19.2 ng/mL (0.0-3.0)
== END 2025-04-04 14:02 | disposition home or self-care (01) ==
LOC: ANHLAB 14:03
PROVIDERS: PCP Family Medicine; Visit Provider Internal Medicine Hematology & Oncology
DX: C18.6 Malignant neoplasm of descending colon (principal)
CPT/HCPCS: 36415; 80053; 82378; 85025